=== PATIENT | female | born 1975 | race Two or more races ===

== ENCOUNTER 2020-03-27 08:25 | Outpatient (REF) | payer BC, SELFPAY ==
--- NOTE | 2020-03-27 08:29 | MM_ITS ---
EXAMINATION: MM SCREENING DIGITAL BREAST TOMOSYNTHESIS, BILATERAL CLINICAL INFORMATION: Screening. Asymptomatic. The lifetime risk of breast cancer based on the Tyrer-Cuzick Model is 8%. COMPARISON: Mammography: 06/22/2018, 06/16/2017 (baseline). TECHNIQUE: Digital breast tomosynthesis is performed in both the craniocaudal and mediolateral oblique views along with computer-aided detection (CAD). Synthesized 2D images are generated from the tomosynthesis. FINDINGS: There are scattered areas of fibroglandular density (ACR BI-RADS breast composition Category b). There are no significant masses, abnormal calcifications, or other abnormalities. Parenchymal pattern is similar to prior exams. No significant changes. MM/MM tomosynthesis screening BI IMPRESSION: No mammographic evidence of malignancy. ASSESSMENT: BI-RADS 1: Negative RECOMMENDATION: Routine annual mammography screening. This patient's information was entered into a reminder system with a target due date for their next mammogram.
== END 2020-03-27 08:26 | disposition home or self-care (01) ==
LOC: HO.MAMMO 08:25
PROVIDERS: PCP Internal Medicine; Visit Provider Internal Medicine
DX: Z12.31 Encounter for screening mammogram for malignant neoplasm of breast (principal)
CPT/HCPCS: 77063; 77067

== ENCOUNTER 2021-05-28 08:10 | Outpatient (REF) | payer BC, SELFPAY ==
--- NOTE | ~2021-05-28 | MM_ITS ---
EXAMINATION: MM SCREENING DIGITAL BREAST TOMOSYNTHESIS, BILATERAL CLINICAL INFORMATION: Screening. Asymptomatic. The lifetime risk of breast cancer based on the Tyrer-Cuzick Model is 8.2%. COMPARISON: Mammography: March 27, 2020 and studies dating back to June 16, 2017 TECHNIQUE: Digital breast tomosynthesis is performed in both the craniocaudal and mediolateral oblique views along with computer-aided detection (CAD). Synthesized 2D images are generated from the tomosynthesis. FINDINGS: There are scattered areas of fibroglandular density (ACR BI-RADS breast composition Category b). There are no significant masses, abnormal calcifications, or other abnormalities. MM/MM tomosynthesis screening BI IMPRESSION: There are no significant changes from prior study. ASSESSMENT: BI-RADS 1: Negative RECOMMENDATION: Routine annual mammography screening. This patient's information was entered into a reminder system with a target due date for their next mammogram.
== END 2021-05-28 08:11 | disposition home or self-care (01) ==
LOC: HO.MAMMO 08:10
PROVIDERS: PCP Internal Medicine; Visit Provider Internal Medicine
DX: Z12.31 Encounter for screening mammogram for malignant neoplasm of breast (principal)
CPT/HCPCS: 77063; 77067

== ENCOUNTER 2021-07-01 10:36 | Emergency (ER) | payer BC, SELFPAY ==
--- NOTE | ~2021-07-01 | XR_ITS ---
EXAMINATION: XR ANKLE AND FOOT, LEFT CLINICAL INFORMATION: Left foot and ankle pain status post crush injury. COMPARISON: None TECHNIQUE: AP, lateral, and mortise views of the left ankle. FINDINGS: There is no acute fracture or dislocation. The tarsal bones are normally aligned. There is a small plantar calcaneal spur. The metatarsals and phalanges are intact. There is mild soft tissue swelling. No radiopaque foreign body. XR/XR ankle LT 2V IMPRESSION: 1. Mild soft tissue swelling without acute underlying osseous abnormality. 2. Small degenerative plantar calcaneal spur.
--- NOTE | ~2021-07-01 | XR_ITS ---
EXAMINATION: XR ANKLE AND FOOT, LEFT CLINICAL INFORMATION: Left foot and ankle pain status post crush injury. COMPARISON: None TECHNIQUE: AP, lateral, and mortise views of the left ankle. FINDINGS: There is no acute fracture or dislocation. The tarsal bones are normally aligned. There is a small plantar calcaneal spur. The metatarsals and phalanges are intact. There is mild soft tissue swelling. No radiopaque foreign body. XR/XR foot LT min 3V IMPRESSION: 1. Mild soft tissue swelling without acute underlying osseous abnormality. 2. Small degenerative plantar calcaneal spur.
[2021-07-01 11:08] VITALS: BP 147/88; PULSE 69; RESP 18; TEMP 36.7; O2SAT 97; BMI 30.7
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
== END 2021-07-01 12:50 | disposition home or self-care (01) ==
PROVIDERS: Emergency Provider Emergency Medicine Emergency Medical Services; PCP Internal Medicine
DX: M25.572 Pain in left ankle and joints of left foot (principal); Z79.899 Other long term (current) drug therapy
CPT/HCPCS: 73600; 73630; 99283

== ENCOUNTER → 2021-07-14 12:54 | Outpatient (BNVA) | payer BC, SELFPAY | PROVIDERS: PCP Internal Medicine; Visit Provider Physician Assistant | DX: Z13.89 Encounter for screening for other disorder (principal) ==

== ENCOUNTER 2022-07-08 09:54 | Outpatient (REF) | payer BC, SELFPAY ==
--- NOTE | ~2022-07-08 | MM_ITS ---
EXAMINATION: MM SCREENING DIGITAL BREAST TOMOSYNTHESIS, BILATERAL CLINICAL INFORMATION: Screening. Asymptomatic. The lifetime risk of breast cancer based on the Tyrer-Cuzick Model is 9%. COMPARISON: Mammography: 05/28/2021, 03/27/2020, 06/22/2018 TECHNIQUE: Digital breast tomosynthesis is performed in both the craniocaudal and mediolateral oblique views along with computer-aided detection (CAD). Synthesized 2D images are generated from the tomosynthesis. FINDINGS: There are scattered areas of fibroglandular density (ACR BI-RADS breast composition Category b). There are no significant masses, abnormal calcifications, or other abnormalities. Parenchymal pattern is similar to prior studies. There is no developing density or architectural abnormality. The axilla and skin contours are unremarkable. No significant changes. MM/MM tomosynthesis screening BI IMPRESSION: No mammographic evidence of malignancy. ASSESSMENT: BI-RADS 1: Negative RECOMMENDATION: Routine annual mammography screening. This patient's information was entered into a reminder system with a target due date for their next mammogram.
== END 2022-07-08 09:55 | disposition home or self-care (01) ==
LOC: HO.MAMMO 09:54
PROVIDERS: PCP Internal Medicine; Visit Provider Internal Medicine
DX: Z12.31 Encounter for screening mammogram for malignant neoplasm of breast (principal)
CPT/HCPCS: 77063; 77067

== ENCOUNTER 2022-09-04 15:07 | Outpatient (REF) | payer BC, SELFPAY ==
[2022-09-04 15:37] LABS: Basophils Percent Auto 0.4 % (0-2); Eosinophils Absolute Auto 0.3 X10*3/uL (0.0-0.4); Eosinophils Percent Auto 3.1 % (0-4); Hematocrit 34.8 % (37.0-47.0); Hemoglobin 10.4 g/dl (12.0-16.0); Imm Gran Abs Auto 0.02 X10*3/uL (0.00-0.03); Imm Gran Pct Auto 0.2 % (0.0-0.4); Lymphocytes Absolute Auto 3.1 X10*3/uL (1.2-4.9); Lymphocytes Percent Auto 34.4 % (20-40); MANUAL DIFF FLAG NO; Mean Corpuscular HGB Conc 29.9 g/dl (31.0-35.0); Mean Platelet Volume 9.5 fL (9.4-12.3); Monocytes Absolute Auto 0.5 X10*3/uL (0.1-1.2); Monocytes Percent Auto 5.9 % (2-11); Neutrophils Absolute Auto 5.1 x10*3/uL (2.0-8.3); Platelet Count 298 X10*3/uL (160-400); Red Blood Count 4.52 X10*6/uL (4.20-5.50); Red Cell Distribution Width 17.4 % (11.0-16.0); White Blood Count 9.1 X10*3/uL (4.8-10.8)
[2022-09-04 21:21] LABS: Alanine Aminotransferase 18 U/L (0-31); Albumin Level 3.8 g/dL (3.5-5.0); Alkaline Phosphatase 75 U/L (39-117); Anion Gap 14 (12-20); Aspartate Amino Transferase 16 U/L (5-31); Bilirubin Total 0.3 mg/dL (0.0-1.0); Blood Urea Nitrogen 21 mg/dL (9-16); Calcium 9.2 mg/dL (8.4-10.2); Carbon Dioxide 22 mmol/L (22-29); Chloride 105 mmol/L (96-108); Estimated Glomerular Filt Rate > 60; Glucose Random 86 mg/dL (60-115); Potassium 3.7 mmol/L (3.3-5.1); Sodium 137 mmol/L (135-145); Total Protein 7.7 g/dL (6.5-8.0)
[2022-09-06 23:29] LABS: TS Negative Control Passed; TS Panel A 0; TS Panel B 0; TS Positive Control Passed; TSpotTB Negative (Negative)
== END 2022-09-04 15:08 | disposition home or self-care (01) ==
LOC: HO.LAB 15:07
PROVIDERS: PCP Internal Medicine; Visit Provider Dermatology
DX: Z11.1 Encounter for screening for respiratory tuberculosis (principal); L40.0 Psoriasis vulgaris; Z79.899 Other long term (current) drug therapy
CPT/HCPCS: 36415; 80053; 85025; 86481

== ENCOUNTER 2022-11-09 15:10 | Outpatient (AMB) | payer BC, SELFPAY ==
[2022-11-09 15:48] VITALS: BP 132/90; PULSE 70; O2SAT 100; BMI 34.2
--- NOTE | 2022-11-09 15:48 | MHC.PC.OV ---
Vital Signs 11/09/22 15:48 Height 5 ft 1 in Weight 181 lb BMI 34.2 BP 132/90 H Blood Pressure Location Rt brachial Position Sitting Pulse 70 Pulse Source Pulse Oximeter Pulse Oximetry (%) 100 Oxygen Delivery Method Room Air Intake Visit Reasons: Physical exam Intake Note: Pt is here today for her PE and Pap Smear Is last menstrual period known: Yes Last menstrual period: 10/24/22 Allergies No Known Allergies Allergy (Verified 11/09/22 17:43) Medication List - Last Reconciled 11/09/22 by Tamiko Laurent MD adalimumab (Humira(CF) Pen) 40 mg subcut Q2W Tobacco use date assessed: 11/09/22 Dental Screening Dental Screen Date: 11/09/22 Did you have a dental visit in the last 12 months?: Yes Did you have a dental problem in the last 6 months where you did not have access to dental care?: No Was dental information given to patient?: Patient has dentist [facility] Medical History Anemia Cervical cancer screening Hyperlipidemia Obesity (BMI 30.0-34.9) Psoriasis Surgical History H/O tubal ligation Previous section Family History Father Insulin dependent type 1 diabetes mellitus Mother CAD (coronary artery disease) H/O heart artery stent Hypercholesteremia Sister Thyroid disorder Essential hypertension Social History Housing: House Patient Tobacco Use Status: Never used Tobacco e-Cigarette/Vaping Use: Never Used service: No Current occupational status: employed 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[employer] Cognitive needs: No Hearing needs: No Vision needs: No Female Reproductive History Menstrual Date of last menstrual period: 10/24/22 Total pregnancies: 4 Questionnaire PHQ-9 Over the last 2 weeks, how often have you been bothered by any of the following problems? 1. Little interest or pleasure in doing things: not at all 2. Feeling down, depressed, or hopeless: not at all 3. Trouble falling or staying asleep, or sleeping too much: several days 4. Feeling tired or having little energy: several days 5. Poor appetite or overeating: nearly every day 6. Feeling bad about yourself - or that you are a failure or have let yourself or your family down: not at all 7. Trouble concentrating on things, such as reading the newspaper or watching television: not at all 8. Moving or speaking so slowly that other people could have noticed. Or the opposite - being so fidgety or restless that you have been moving around a lot more than usual: not at all 9. Thoughts that you would be better off or of hurting yourself in some way: not at all Total score: 5 Depression Screening Interpretation: Negative 90825 - PHQ-9 Billing: Yes Source: Developed by Drs. Antonio Salazar, Radha Davison, Baltazar Borges and colleagues, with an educational roberta from [employer]. Thrive Questionnaire Date Thrive assessed: 11/09/22 I am a: Patient What is your living situation today?: I have a steady place to live Within the past 12 months, did the food you bought not last and you didn't have the money to get more?: Never true Within the past 12 months, did you worry whether your food would run out before you got money to buy more?: Never true Do you have trouble paying for medicines?: No Do you have trouble getting transportation to medical appointments?: No Do you have trouble paying your heating and electricity bill?: No Do you have trouble taking care of your child, family member or friend?: No Do you have trouble with day-to-day activities such as bathing, preparing meals, shopping, managing finances, etc.?: No Are you currently unemployed and looking for a job?: No Are you interested in more education?: No AUDIT C Alcohol Use Questionnaire (AUDIT-C) 1. How often do you have a drink containing alcohol?: Monthly or less 2. How many drinks containing alcohol do you have on a typical day when you are drinking?: 1 or 2 3. How often do you have six or more drinks on one occasion?: Never Total Score: 1 LAWANDA-7 AMB Questionnaire LAWANDA-7 Date LAWANDA - 7 assessed: 11/09/22 Feeling nervous, anxious, or on edge: 0 = Not at all Not being able to stop or control worryin = Several days Worrying too much about different things: 0 = Not at all Trouble relaxin = Several days Being so restless that it is hard to sit still: 0 = Not at all Becoming easily annoyed or irritable: 0 = Not at all Feeling afraid as if something awful might happen: 0 = Not at all Total LAWANDA-7 score (0-4 normal; 5-9 mild; 10-14 moderate; 15-21 severe): 2 Source: Developed by Drs. Antonio Salazar, Radha Davison, Baltazar Borges and colleagues, with an educational roberta from [employer]. LAWANDA-7 Assessment Billing LAWANDA-7 Assessment Tool: LAWANDA-7 Assessment 76402 Review of Systems Const Denies body aches, Denies fatigue, Denies fever(s), Denies headache(s), Denies weakness and Reports weight gain Eyes Denies change in vision, Denies eye discharge and Denies itchy eyes ENT Denies dizziness, Denies headache(s), Denies nasal congestion, Denies nasal discharge and Denies sore throat Card Denies chest pain, Denies lightheadedness, Denies palpitations and Denies dyspnea Resp Denies chest congestion, Denies cough, Denies dyspnea and Denies wheezing GI Denies abdominal pain, Denies change in bowel habits and Denies heartburn Denies hematuria, Denies urinary frequency, Denies dysuria and Denies urinary urgency Musc Reports no additional complaints Skin/Breast Denies breast pain, Denies breast mass, Denies lesions and Denies rash Neuro Denies dizziness, Denies headache(s) and Denies weakness Psych Reports no additional complaints Endo Denies fatigue, Denies polydipsia, Denies polyuria and Denies palpitations José Miguel/Lymph Denies easy bruising Aller/Immun Denies itchy eyes, Denies seasonal rhinorrhea and Denies wheezing Physical exam (Primary Care) Vital Signs: Last Vital Signs Pulse 70 11/09/22 15:48 BP 132/90 H 11/09/22 15:48 Pulse Ox 100 11/09/22 15:48 Oxygen Delivery Method Room Air 11/09/22 15:48 BMI result Body Mass Index 34.2 BMI Assessment/Plan discussion: High BMI High, discussed plan: lifestyle, weight reduction, dietary and physical activity Tobacco/Smoking Status: Tobacco use Status Tobacco use date assessed 11/09/22 11/09/22 15:54 Patient Tobacco Use Status Never used Tobacco 11/09/22 15:54 e-Cigarette/Vaping Use Never Used 11/09/22 15:54 PHQ-9: PHQ-9 Score PHQ-9: Total score 5 11/09/22 16:46 Depression Screening Interpretation: Negative Thrive Assessment: Date of Thrive Assessment Date Thrive assessed 11/09/22 11/09/22 16:01 Const General: comfortable, no acute distress, alert, awake and Physically active Nutritional Appearance: obese Orientation/consciousness: patient oriented x3 Limitations: no limitations HENMT Head: Yes normocephalic Ears: hearing grossly normal bilaterally, external ears normal, TM's normal bilaterally and EAC's normal General nose exam: Normal external nose present Face and sinus: Yes face symmetric Mouth: Normal oral and palatal mucosa present, tongue normal, oropharynx normal and moist mucous membranes Eyes General: appearance normal, both eyes and all related structures Periorbital: periorbital findings normal Eyelids: Yes eyelids normal Conjunctivae: conjunctivae normal Sclerae: sclerae normal Pupils: Equal, round and reactive pupils present EOM: EOMs intact bilaterally Neck Neck: Yes full ROM, Yes no lymphadenopathy and Yes supple Thyroid: Thyroid normal (Nonpalpable) Chest Chest palpation & inspection: normal palpation of entire chest wall and abnormal inspection of the chest Breast/axilla inspection: normal inspection of the breasts Breast/axilla palpation: normal palpation of the breasts and normal palpation of the axillae Resp Effort & Inspection: normal respiratory effort and able to speak in complete sentences Auscultation: clear to auscultation bilaterally Cardio Rate: regular rate Rhythm: regular rhythm Heart sounds: S1 normal heart sound present and S2 normal heart sound present GI Inspection: Yes obesity Palpation (GI): Soft to palpation, nontender, no guarding and no masses Auscultation: normal bowel sounds General: Yes bladder normal to palpation and Yes no CVA tenderness External Female Exam: normal external appearance and normal appearance of the urethra Speculum Exam - Vagina: normal appearance of the vagina, normal palpation and normal vaginal discharge Speculum Exam - Cervix: normal appearance of the cervix, normal palpation and Cervical os open Bimanual exam- vagina & uterus: normal palpation, bladder normal to palpation, consistency normal, normal palpation, non-tender and no cervical motion tenderness Bimanual Exam- Adnexa, other: normal adnexae, no masses, normal and No adnexal tenderness OB/external & speculum: Cervical os open Back/Spine/Pelvis Back: no CVA tenderness and No back tenderness Skin General skin exam: no rashes or lesions noted Neuro General: patient oriented x3, gait normal, tone normal, moves all extremities, Normal light touch and pain sensation, no focal motor deficits and CN's II-XI intact bilaterally Cranial nerves: Yes Equal, round and reactive pupils present Gait exam (Neuro): Normal gait present Psych Appearance: grossly normal and well kempt Mental Status: mental status grossly normal Speech and movement: Normal speech and movement present Affect: normal affect Attitude: cooperative Thought process: Normal thought process present Thought content: Normal thought content present Assessment and Plan Assessment & Plan (1) Annual visit for general adult medical examination with abnormal findings: Code(s): Z00.01 - Encounter for general adult medical examination with abnormal findings Plan: Will check appropriate labs. Recommended dental visit every 6 months and regular eye exams, at least every 2 years. Take adequate calcium in diet and vitamin-D 3 at 2000 IU per cap once a day, in addition to weight-bearing exercises to help maintain good muscle tone and weight control. Instructed to do self-breast exam, and continue to get yearly mammogram. Advised to get yearly flu shots, get the new COVID booster that is coming out, and up-to-date with her Tdap . She is now due for colon cancer screening, does not want to get a colonoscopy procedure, check with insurance if Cologuard covered and will let me know so that test can be ordered. Cervical cancer screening done today (2) Obesity (BMI 30.0-34.9): Code(s): E66.9 - Obesity, unspecified Plan: Discussed need to increase activity and wt reduction. Recommended focusing on improving your health instead of dieting. : Eat Mediterranean diet, limit foods high in fat, sugar, and calories, eat slowly, pay attention to portion sizes, plan your meals ahead of time, start regular physical activity 150 minutes of moderate intensity exercise or 90 minutes/week of vigorous exercise and increase water intake. (3) Anemia: Code(s): D64.9 - Anemia, unspecified Plan: Ordered CBC and iron profile, encouraged to incorporate lot of green leafy vegetables and lean meat into her diet (4) Cervical cancer screening: Code(s): Z12.4 - Encounter for screening for malignant neoplasm of cervix Plan: Pap and pelvic exam done today (5) Psoriasis: Comment: Sees Dr. uLis Maharaj- currently on Humira Code(s): L40.9 - Psoriasis, unspecified Plan: Currently a Humira followed by dermatology (6) Encounter for physical examination: Code(s): Z00.00 - Encounter for general adult medical examination without abnormal findings Orders: Orders Comprehensive [place]. Panel Fast Today E66.9 - Obesity, unspecified, S90.32XA - Contusion of left foot, initial encounter, Z13.1 - Encounter for screening for diabetes mellitus, Z13.220 - Encounter for screening for lipoid disorders IRON PROFILE Today D64.9 - Anemia, unspecified, E66.9 - Obesity, unspecified, S90.32XA - Contusion of left foot, initial encounter, Z13.1 - Encounter for screening for diabetes mellitus, Z13.220 - Encounter for screening for lipoid disorders Lipid Panel Today E66.9 - Obesity, unspecified, S90.32XA - Contusion of left foot, initial encounter, Z13.1 - Encounter for screening for diabetes mellitus, Z13.220 - Encounter for screening for lipoid disorders TSH reflex Free T4 Today E66.9 - Obesity, unspecified, S90.32XA - Contusion of left foot, initial encounter, Z13.1 - Encounter for screening for diabetes mellitus, Z13.220 - Encounter for screening for lipoid disorders Vitamin D 25-OH Total Today E66.9 - Obesity, unspecified, S90.32XA - Contusion of left foot, initial encounter, Z13.1 - Encounter for screening for diabetes mellitus, Z13.220 - Encounter for screening for lipoid disorders Complete Blood Count Auto Diff Today E66.9 - Obesity, unspecified, Z13.1 - Encounter for screening for diabetes mellitus, Z13.220 - Encounter for screening for lipoid disorders Pap Smear Today Z12.4 - Encounter for screening for malignant neoplasm of cervix Coding Level of Care Code Est Pt Prev Care 40-64y(46872) Diagnoses Annual visit for general adult medical examination with abnormal findings Z00.01 Obesity (BMI 30.0-34.9) E66.9 Anemia D64.9 Cervical cancer screening Z12.4 Psoriasis L40.9 Encounter for physical examination Z00.00 Additional Codes LAWANDA-7 Assessment Billing - LAWANDA-7 Assessment Tool: LAWANDA-7 Assessment [id number] ([id number])
== END 2022-11-09 16:43 | disposition home or self-care (01) ==
PROVIDERS: PCP Internal Medicine; Visit Provider Internal Medicine
DX: Z00.01 Encounter for general adult medical examination with abnormal findings (principal); E66.9 Obesity, unspecified; D64.9 Anemia, unspecified; Z68.34 Body mass index [BMI] 34.0-34.9, adult; L40.9 Psoriasis, unspecified
CPT/HCPCS: 99396

== ENCOUNTER 2022-11-09 16:47 | Outpatient (REF) | payer BC, SELFPAY ==
[2022-11-18 12:49] LABS: HPV mRNA E6/E7 rflx Not Detected (Not Detected)
== END 2022-11-09 16:48 | disposition home or self-care (01) ==
LOC: HO.LAB 16:47
PROVIDERS: Visit Provider Internal Medicine
DX: Z12.4 Encounter for screening for malignant neoplasm of cervix (principal); Z11.51 Encounter for screening for human papillomavirus (HPV)
CPT/HCPCS: 87624; 88142

== ENCOUNTER 2023-01-30 11:36 | Outpatient (AMB) | payer BC, SELFPAY ==
--- NOTE | 2023-01-30 11:34 | A.OFFPC_ITS ---
<Statement entered by Tamiko Laurent MD - 04/12/25 23:45> This note has been administratively?closed. Intake Visit Reasons: weight loss options Intake Note: [phone] Allergies No Known Allergies Allergy (Verified 03/10/25 15:36) Medication List - Last Reconciled 01/30/23 by Tamiko Laurent MD adalimumab (Humira(CF) Pen) 40 mg subcut Q2W cholecalciferol (vitamin D3) 1,250 mcg PO QWEEK 3 months ferrous fumarate 325 mg PO DAILY Tobacco use date assessed: 01/30/23 Dental Screening Dental Screen Date: 01/30/23 Did you have a dental visit in the last 12 months?: Yes Did you have a dental problem in the last 6 months where you did not have access to dental care?: No Was dental information given to patient?: Patient has dentist [facility] Medical History (Updated 03/10/25 @ 15:48 by Radha Laughlin PA-C) Strep pharyngitis Anemia Irregular menstrual bleeding Adalimumab (Humira) long-term use Impaired fasting glucose Acute respiratory disease Cough Wheezing on auscultation Essential hypertension Vitamin D deficiency Hypochromic microcytic anemia Mixed dyslipidemia Hyperlipidemia Psoriasis Cervical cancer screening Obesity (BMI 30.0-34.9) Surgical History H/O tubal ligation Previous section Family History Father Insulin dependent type 1 diabetes mellitus Mother CAD (coronary artery disease) H/O heart artery stent Hypercholesteremia Sister Thyroid disorder Essential hypertension Social History Housing: House Alcohol intake: current Alcohol intake frequency: holidays/special occasions only Alcohol type: wine and hard liquor Patient Tobacco Use Status: Never used Tobacco e-Cigarette/Vaping Use: Never Used service: No Current occupational status: employed 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 Saman, Baltazar Borges and colleagues, with an educational roberta from [employer]. Physical exam (Primary Care) Tobacco/Smoking Status: Tobacco use Status Tobacco use date assessed 01/30/23 01/30/23 11:36 Patient Tobacco Use Status Never used Tobacco 01/30/23 11:36 e-Cigarette/Vaping Use Never Used 01/30/23 11:36 Thrive Assessment: Date of Thrive Assessment Date Thrive assessed 11/09/22 01/30/23 11:36 Telehealth Telehealth Location of provider rendering services: practice address Location of patient: address on file Patient Identification confirmed using: Name, : Yes Telehealth method: video Patient verbally consented to treatment: Yes Patient verbally consented to billing insurance company: Yes Patient informed of any privacy concerns related to visit: Yes Minutes spent on Phone/Video with Pt.: 15 Coding Level of Care Code Admin Sign Off/No Billing Diagnoses Obesity (BMI 30.0-34.9) E66.9
== END 2023-01-30 15:30 | disposition home or self-care (01) ==
LOC: HO.HMGC 11:36
PROVIDERS: PCP Internal Medicine; Visit Provider Internal Medicine
DX: E66.9 Obesity, unspecified (principal)
CPT/HCPCS: 99499

== ENCOUNTER 2023-05-03 09:09 | Outpatient (REF) | payer BC, SELFPAY ==
[2023-05-03 09:29] LABS: MANUAL DIFF FLAG NO
[2023-05-03 10:13] LABS: Basophils Percent Auto 0.4 % (0-2); Eosinophils Absolute Auto 0.3 X10*3/uL (0.0-0.4); Eosinophils Percent Auto 3.6 % (0-4); Hematocrit 42.2 % (37.0-47.0); Hemoglobin 13.4 g/dl (12.0-16.0); Imm Gran Abs Auto 0.02 X10*3/uL (0.00-0.03); Imm Gran Pct Auto 0.3 % (0.0-0.4); Lymphocytes Absolute Auto 2.8 X10*3/uL (1.2-4.9); Lymphocytes Percent Auto 39.9 % (20-40); Mean Corpuscular HGB Conc 31.8 g/dl (31.0-35.0); Mean Corpuscular Hemoglobin 27.7 pg (27.0-33.0); Mean Corpuscular Volume 87.2 fL (80.0-98.0); Mean Platelet Volume 9.7 fL (9.4-12.3); Monocytes Absolute Auto 0.5 X10*3/uL (0.1-1.2); Monocytes Percent Auto 7.5 % (2-11); Neutrophils Absolute Auto 3.3 x10*3/uL (2.0-8.3); Neutrophils Percent Auto 48.3 % (45-73); Platelet Count 253 X10*3/uL (160-400); Red Blood Count 4.84 X10*6/uL (4.20-5.50); Red Cell Distribution Width 14.5 % (11.0-16.0); White Blood Count 6.9 X10*3/uL (4.8-10.8)
[2023-05-03 11:16] LABS: Alanine Aminotransferase 16 U/L (0-31); Albumin Level 3.7 g/dL (3.5-5.0); Alkaline Phosphatase 71 U/L (39-117); Anion Gap 11 (12-20); Aspartate Amino Transferase 14 U/L (5-31); Bilirubin Total 0.5 mg/dL (0.0-1.0); Blood Urea Nitrogen 15 mg/dL (9-16); Calcium 9.1 mg/dL (8.4-10.2); Carbon Dioxide 25 mmol/L (22-29); Chloride 107 mmol/L (96-108); Cholesterol 295 mg/dL (<200); Estimated Glomerular Filt Rate > 60; Glucose Fasting 91 mg/dL (60-99); HDL Cholesterol 63 mg/dL (>40); Iron 108 mcg/dL (30-160); LDL Cholesterol Calculated 208 mg/dL (<100); Percent Iron Saturation 30 % (15-50); Potassium 3.8 mmol/L (3.3-5.1); Sodium 139 mmol/L (135-145); Total Iron Binding Capacity 356 mcg/dL (228-428); Total Protein 7.5 g/dL (6.5-8.0); Triglycerides 124 mg/dL (<150); Unsaturated Iron Binding 248 ug/dL
[2023-05-03 11:34] LABS: TSH reflex Free T4 1.89 uIU/mL (0.32-4.0); Vitamin D 25-OH Total 42.6 ng/mL (>30)
== END 2023-05-03 09:10 | disposition home or self-care (01) ==
LOC: HO.LAB 09:09
PROVIDERS: PCP Internal Medicine; Visit Provider Internal Medicine
DX: E78.2 Mixed hyperlipidemia (principal); D50.9 Iron deficiency anemia, unspecified; E55.9 Vitamin D deficiency, unspecified; E66.9 Obesity, unspecified; S90.32XA Contusion of left foot, initial encounter; X58.XXXA Exposure to other specified factors, initial encounter; Y93.9 Activity, unspecified; Y92.9 Unspecified place or not applicable; Y99.9 Unspecified external cause status; Z13.220 Encounter for screening for lipoid disorders; Z13.1 Encounter for screening for diabetes mellitus
CPT/HCPCS: 36415; 80053; 80061; 82306; 83540; 84443; 85025

== ENCOUNTER 2023-05-11 12:53 | Outpatient (AMB) | payer BC, SELFPAY ==
--- NOTE | 2023-05-11 13:12 | MHC.PC.OV ---
Vital Signs 05/11/23 13:13 Height 5 ft 1 in Weight 185 lb 6 oz BMI 35.0 BP 142/90 H Blood Pressure Location Lt brachial Position Sitting Pulse 83 Pulse Source Pulse Oximeter Pulse Oximetry (%) 99 Oxygen Delivery Method Room Air Intake Visit Reasons: 6 month follow up Intake Note: Pt is here to follow up for labs Allergies No Known Allergies Allergy (Verified 05/11/23 13:40) Medication List - Last Reconciled 05/11/23 by Tamiko Laurent MD adalimumab (Humira(CF) Pen) 40 mg subcut Q2W ferrous fumarate 325 mg PO DAILY Tobacco use date assessed: 05/11/23 Dental Screening Dental Screen Date: 05/11/23 Did you have a dental visit in the last 12 months?: Yes Did you have a dental problem in the last 6 months where you did not have access to dental care?: No Was dental information given to patient?: Patient has dentist HPI 6 month follow up HPI Details 47-year-old lady with obesity, anemia, and psoriasis, here today for her follow-up . She is frustrated that his keeps on getting weight, but admits that it is her fault as she has not been controlling her diet and has not been getting any exercise at all. Her recent fasting labs showed resolution of her anemia, normal electrolytes, fasting glucose, thyroid levels and vitamin-D but her LDL cholesterol is markedly elevated at 208 mg/dL. [facility] Medical History (Updated 05/11/23 @ 13:50 by Tamiko Laurent MD) Essential hypertension Vitamin D deficiency Hypochromic microcytic anemia Mixed dyslipidemia Hyperlipidemia Psoriasis Cervical cancer screening Anemia Obesity (BMI 30.0-34.9) Surgical History H/O tubal ligation Previous section Family History Father Insulin dependent type 1 diabetes mellitus Mother CAD (coronary artery disease) H/O heart artery stent Hypercholesteremia Sister Thyroid disorder Essential hypertension Social History Housing: House Patient Tobacco Use Status: Never used Tobacco e-Cigarette/Vaping Use: Never Used service: No Current occupational status: employed 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 Depression Screening Interpretation: Negative Depression Screening Done: Yes 00384 - PHQ-9 Billing: Patient declined-do not bill Source: Developed by Drs. Antonio Salazar, Radha Davison, Baltazar Borges and colleagues, with an educational roberta from [employer]. Thrive Questionnaire Date Thrive assessed: 05/11/23 I am a: Patient What is your living situation today?: I choose not to answer this question Within the past 12 months, did the food you bought not last and you didn't have the money to get more?: I choose not to answer this question Within the past 12 months, did you worry whether your food would run out before you got money to buy more?: I choose not to answer this question Do you have trouble paying for medicines?: I choose not to answer this question Do you have trouble getting transportation to medical appointments?: I choose not to answer this question Do you have trouble paying your heating and electricity bill?: I choose not to answer this question Do you have trouble taking care of your child, family member or friend?: I choose not to answer this question Do you have trouble with day-to-day activities such as bathing, preparing meals, shopping, managing finances, etc.?: I choose not to answer this question Are you currently unemployed and looking for a job?: I choose not to answer this question Are you interested in more education?: I choose not to answer this question Currently or been in a relationship where the following occur: I choose not to answer this question THRIVE Score: 0 AUDIT C Alcohol Use Questionnaire (AUDIT-C) 1. How often do you have a drink containing alcohol?: Monthly or less 2. How many drinks containing alcohol do you have on a typical day when you are drinking?: 1 or 2 3. How often do you have six or more drinks on one occasion?: Never Total Score: 1 LAWANDA-7 AMB Questionnaire LAWANDA-7 Date LAWANDA - 7 assessed: 05/11/23 Source: Developed by Drs. Antonio Salazar, Radha Davison, Baltazar Borges and colleagues, with an educational roberta from [employer]. LAWANDA-7 Assessment Billing LAWANDA-7 Assessment Tool: pt declined-do not bill Review of Systems Const Denies body aches, Denies fatigue, Denies fever(s), Denies headache(s), Denies weakness and Reports weight gain Eyes Denies change in vision, Denies eye discharge and Denies itchy eyes ENT Denies dizziness, Denies headache(s), Denies nasal congestion, Denies nasal discharge and Denies sore throat Card Denies chest pain, Denies lightheadedness, Denies palpitations and Denies dyspnea Resp Denies chest congestion, Denies cough, Denies dyspnea and Denies wheezing GI Denies abdominal pain, Denies change in bowel habits and Denies heartburn Denies hematuria, Denies urinary frequency, Denies dysuria and Denies urinary urgency Musc Reports no additional complaints Skin/Breast Denies breast pain, Denies breast mass, Denies lesions and Denies rash Neuro Denies dizziness, Denies headache(s) and Denies weakness Psych Reports no additional complaints Endo Denies fatigue, Denies polydipsia, Denies polyuria and Denies palpitations José Miguel/Lymph Denies easy bruising Aller/Immun Denies itchy eyes, Denies seasonal rhinorrhea and Denies wheezing Physical exam (Primary Care) Vital Signs: Last Vital Signs Pulse 83 05/11/23 13:13 BP 142/90 H 05/11/23 13:13 Pulse Ox 99 05/11/23 13:13 Oxygen Delivery Method Room Air 05/11/23 13:13 BMI result Body Mass Index 35.0 BMI Assessment/Plan discussion: High BMI High, discussed plan: lifestyle, weight reduction, dietary and physical activity Tobacco/Smoking Status: Tobacco use Status Tobacco use date assessed 05/11/23 05/11/23 13:19 Patient Tobacco Use Status Never used Tobacco 05/11/23 13:19 e-Cigarette/Vaping Use Never Used 05/11/23 13:19 Depression Screening Interpretation: Negative Thrive Assessment: Date of Thrive Assessment Date Thrive assessed 05/11/23 05/11/23 13:20 Currently or been in a relationship where the following occur: I choose not to answer this question Const General: comfortable, no acute distress and alert Nutritional Appearance: obese Orientation/consciousness: patient oriented x3 HENMT Head: Yes normocephalic Ears: external ears normal General nose exam: Normal external nose present Face and sinus: Yes face symmetric Mouth: oropharynx normal and moist mucous membranes Eyes General: appearance normal, both eyes and all related structures Neck Neck: Yes full ROM, Yes no lymphadenopathy and Yes supple Thyroid: Thyroid normal (Nonpalpable) Resp Effort & Inspection: normal respiratory effort and able to speak in complete sentences Auscultation: clear to auscultation bilaterally Cardio Rate: regular rate Rhythm: regular rhythm Heart sounds: S1 normal heart sound present and S2 normal heart sound present GI Inspection: Yes obesity Palpation (GI): Soft to palpation, nontender, no guarding and no masses Auscultation: normal bowel sounds Back/Spine/Pelvis Back: No back tenderness Skin General skin exam: no rashes or lesions noted Neuro General: patient oriented x3, gait normal, tone normal, moves all extremities, Normal light touch and pain sensation, no focal motor deficits and CN's II-XI intact bilaterally Gait exam (Neuro): Normal gait present Results Reviewed Results Reviewed: ENTERED: 05/03/23 ISAÍAS HUYNH: ORDERED: CBC Auto Diff Test Result Flag Reference WBC 6.9 4.8-10.8 X10*3/uL RBC 4.84 4.20-5.50 X10*6/uL HGB 13.4 # 12.0-16.0 g/dl HCT 42.2 # 37.0-47.0 % MCV 87.2 80.0-98.0 fL MCH 27.7 27.0-33.0 pg MCHC 31.8 31.0-35.0 g/dl RDW 14.5 11.0-16.0 % PLT 253 160-400 X10*3/uL MPV 9.7 9.4-12.3 fL Neut Pct Auto 48.3 45-73 % ImGran Pct Auto 0.3 0.0-0.4 % Lymp Pct Auto 39.9 20-40 % Beckham Pct Auto 7.5 2-11 % Eos Pct Auto 3.6 0-4 % Baso Pct Auto 0.4 0-2 % NRBC Pct Auto 0.0 0.0-0.2 /100WBC ANC Neut Abs # 3.3 2.0-8.3 x10*3/uL ImGran Abs Auto 0.02 0.00-0.03 X10*3/uL Lymph Abs Auto 2.8 1.2-4.9 X10*3/uL Beckham Abs Auto 0.5 0.1-1.2 X10*3/uL Eos Abs Auto 0.3 0.0-0.4 X10*3/uL Baso Abs Auto 0.0 0.0-0.2 X10*3/uL NRBC Abs Auto 0.000 0.0-0.012 X10*3/uL ENTERED: 05/03/23 ISAÍAS HUYNH: ORDERED: CMP Fast, IRON PROF, Lipid Panel, Vitamin D 25-OH, TSH Rflx Test Result Flag Reference Sodium 139 135-145 mmol/L Potassium 3.8 3.3-5.1 mmol/L CL 107 96-108 mmol/L CO2 25 22-29 mmol/L Gap 11 L 12-20 BUN 15 9-16 mg/dL Creat 0.69 0.5-1.4 mg/dL EGFR > 60 NOTE: For -[place]ren[place] individuals, multiply the result by 1.210. Chronic Kidney Disease: Estimated GFR < 60 mL/min/1.73m2 Severe Kidney Disease: Estimated GFR < 15 mL/min/1.73m2 FBS 91 60-99 mg/dL CA 9.1 8.4-10.2 mg/dL Iron 108 30-160 mcg/dL TIBC 356 228-428 mcg/dL Saturation 30 15-50 % UIBC 248 ug/dL Total Bili 0.5 0.0-1.0 mg/dL AST (GOT) 14 5-31 U/L ALT (GPT) 16 0-31 U/L Protein, Total 7.5 6.5-8.0 g/dL Alb 3.7 3.5-5.0 g/dL Triglyceride 124 <150 mg/dL Desirable Triglyceride: less than 150 mg/dL Borderline High Triglyceride 150-199 mg/dL High Triglyceride: 200-499 mg/dL Very High Triglyceride: greater than or equal to 5OO mg/dL Cholesterol 295 H <200 mg/dL Desirable Cholesterol: less than 200 mg/dL Borderline High Cholesterol: 200-239 mg/dL High Cholesterol: greater than 239 mg/dL LDL Calculated 208 H <100 mg/dL Desirable LDL: less than 100 mg/dL Near Optimal/Above Optimal LDL: 110-129 mg/dL Borderline High LDL: 130-159 mg/dL High LDL: 160-189 mg/dL Very High LDL: greater than or equal to 190 mg/dL HDL 63 >40 mg/dL Desirable HDL: greater than 40 mg/dL Note: This HDL assay may give artificially low results in patients with liver disease. Alk Phos 71 39-117 U/L Vit D 25-OH Tot 42.6 >30 ng/mL Health Based Reference Values* < 20 ng/mL Deficient 20-30 ng/mL Insufficient > 30 ng/mL Sufficient *Agapito HERRERA. N Engl J Med. 2007;357:266-280 Care must be taken in interpreting Vitamin D results from different laboratories and methodologies. Published data demonstrated that results from patients undergoing hemodialysis may show a negative bias when tested with various automated 25-OH vitamin D assays when compared to LC-MS/MS. When testing samples from patients whose predominant form of Vitamin D is Vitamin D2, such as patients receiving Vitamin D2 supplementation, results that are subtherapeutic should be confirmed with another method such as LC-MS/MS. TSH 1.89 0.32-4.0 uIU/mL Assessment and Plan Assessment & Plan (1) Obesity (BMI 30.0-34.9): Code(s): E66.9 - Obesity, unspecified Plan: Schedule nurse navigator visit in a week to discuss nutrition and diet, stressed importance of doing regular weight-bearing exercises on a daily basis and following recommended diet. (2) Essential hypertension: Code(s): I10 - Essential (primary) hypertension Plan: Blood pressure not at goal of less than 130/80. Started lisinopril 5 mg taken once a day in a.m... Reinforced importance of following a low sodium diet, getting regular exercise, and lowering stress levels. Check blood pressure with nurse navigator in a week (3) Mixed dyslipidemia: Code(s): E78.2 - Mixed hyperlipidemia Plan: Reviewed recent fasting lipid profile with patient with levels markedly elevated . Started on atorvastatin 10 mg per tablet to take once a day , in addition to adherence to low-cholesterol diet and regular exercise, at least 30 minutes 3 to 4 times a week. Advised patient to make healthy food choices, eat more fruits, vegetables, whole grains, wild caught fish and low-fat dairy. Limit amount of meat and fried or fatty food products, as well as processed foods and fast foods. Follow-up scheduled with repeat fasting lipid panel in 3 months. Orders: Orders Lipid Panel 08/11/23 E66.9 - Obesity, unspecified, I10 - Essential (primary) hypertension Aspartate Amino Transferase 08/11/23 E66.9 - Obesity, unspecified, I10 - Essential (primary) hypertension Basic Metabolic Panel Fasting 08/11/23 E66.9 - Obesity, unspecified, I10 - Essential (primary) hypertension Alanine Aminotransferase 08/11/23 E66.9 - Obesity, unspecified, I10 - Essential (primary) hypertension Medications: New atorvastatin 10 mg PO DAILY 90 tabs 1RF E66.9 - Obesity, unspecified, I10 - Essential (primary) hypertension lisinopril 5 mg PO DAILY 30 tabs 1RF Coding Level of Care Code Est Pt Level 4 (49778) Diagnoses Obesity (BMI 30.0-34.9) E66.9 Essential hypertension I10 Mixed dyslipidemia E78.2
[2023-05-11 13:13] VITALS: BP 142/90; PULSE 83; O2SAT 99; BMI 35.0
== END 2023-05-11 13:58 | disposition home or self-care (01) ==
PROVIDERS: PCP Internal Medicine; Visit Provider Internal Medicine
DX: I10 Essential (primary) hypertension (principal); E78.2 Mixed hyperlipidemia; E66.9 Obesity, unspecified; Z68.35 Body mass index [BMI] 35.0-35.9, adult
CPT/HCPCS: 99214

== ENCOUNTER → 2023-07-21 08:45 | Outpatient (BNV) | payer BC, SELFPAY | PROVIDERS: PCP Internal Medicine; Visit Provider Radiology Diagnostic Radiology | DX: Z12.31 Encounter for screening mammogram for malignant neoplasm of breast (principal) | CPT/HCPCS: 77063; 77067 ==

== ENCOUNTER 2023-07-21 08:50 | Outpatient (REF) | payer BC, SELFPAY | END 2023-07-21 08:51 | disposition home or self-care (01) | LOC: HO.MAMMO 08:50 | PROVIDERS: PCP Internal Medicine; Visit Provider Internal Medicine | DX: Z12.31 Encounter for screening mammogram for malignant neoplasm of breast (principal) | CPT/HCPCS: 77063; 77067 ==

== ENCOUNTER 2023-08-23 15:16 | Outpatient (AMB) | payer BC, SELFPAY ==
[2023-08-23 15:21] VITALS: BP 128/74; PULSE 78; O2SAT 94; BMI 34.4
--- NOTE | 2023-08-23 15:21 | MHC.PC.OV ---
Vital Signs 08/23/23 15:21 Height 5 ft 1 in Weight 182 lb 2 oz BMI 34.4 BP 128/74 Blood Pressure Location Lt brachial Position Sitting Pulse 78 Pulse Source Pulse Oximeter Pulse Oximetry (%) 94 Oxygen Delivery Method Room Air Intake Visit Reasons: 3M F/U Intake Note: Pt is here today for 3M follow up Allergies No Known Allergies Allergy (Verified 08/23/23 15:28) Medication List - Last Reconciled 08/23/23 by Tamiko Laurent MD adalimumab (Humira(CF) Pen) 40 mg subcut Q2W atorvastatin 10 mg PO DAILY ferrous fumarate 325 mg PO DAILY lisinopril 5 mg PO DAILY Tobacco use date assessed: 08/23/23 Dental Screening Dental Screen Date: 08/23/23 Did you have a dental visit in the last 12 months?: Yes Did you have a dental problem in the last 6 months where you did not have access to dental care?: No Was dental information given to patient?: Patient has dentist HPI 3M F/U HPI Details 47-year-old lady with hyperlipidemia, history of anemia, hypertension, psoriasis, and obesity, here today for follow-up. Has been compliant with taking her medications. Blood pressure today within normal limits. However she has not been able to lose any weight, tries to follow recommended diet but has not been able to find any time to exercise regularly due to her work schedule and commitments at home. Has hyperlipidemia, currently on atorvastatin 10 mg daily, but has not yet had her repeat fasting labs done [facility] Medical History Essential hypertension Vitamin D deficiency Hypochromic microcytic anemia Mixed dyslipidemia Hyperlipidemia Psoriasis Cervical cancer screening Anemia Obesity (BMI 30.0-34.9) Surgical History H/O tubal ligation Previous section Family History Father Insulin dependent type 1 diabetes mellitus Mother CAD (coronary artery disease) H/O heart artery stent Hypercholesteremia Sister Thyroid disorder Essential hypertension Social History Housing: House Patient Tobacco Use Status: Never used Tobacco e-Cigarette/Vaping Use: Never Used service: No Current occupational status: employed 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 How often do you have a drink containing alcohol?: Monthly or less 2. How many drinks containing alcohol do you have on a typical day when you are drinking?: 1 or 2 3. How often do you have six or more drinks on one occasion?: Never Total Score: 1 Score Reviewed/Action Taken: Yes LAWANDA-7 AMB Questionnaire LAWANDA-7 Date LAWANDA - 7 assessed: 05/11/23 Source: Developed by Drs. Antonio Salazar, Radha Davison, Baltazar Borges and colleagues, with an educational roberta from [employer]. Review of Systems Const Denies body aches, Denies fatigue, Denies fever(s), Denies headache(s) and Denies weakness Eyes Denies change in vision ENT Denies dizziness, Denies headache(s), Denies nasal congestion, Denies nasal discharge and Denies sore throat Card Denies chest pain, Denies lightheadedness, Denies palpitations and Denies dyspnea Resp Denies chest congestion, Denies cough, Denies dyspnea and Denies wheezing GI Denies abdominal pain, Denies change in bowel habits and Denies heartburn Denies hematuria, Denies urinary frequency, Denies dysuria and Denies urinary urgency Musc Reports no additional complaints Neuro Denies dizziness, Denies headache(s) and Denies weakness Psych Reports no additional complaints Endo Denies fatigue, Denies polydipsia, Denies polyuria and Denies palpitations José Miguel/Lymph Denies easy bruising Aller/Immun Denies seasonal rhinorrhea and Denies wheezing Physical exam (Primary Care) Vital Signs: Last Vital Signs Pulse 78 08/23/23 15:21 BP 128/74 08/23/23 15:21 Pulse Ox 94 08/23/23 15:21 Oxygen Delivery Method Room Air 08/23/23 15:21 BMI result Body Mass Index 34.4 BMI Assessment/Plan discussion: High BMI High, discussed plan: lifestyle, weight reduction, dietary and physical activity Tobacco/Smoking Status: Tobacco use Status Tobacco use date assessed 06/13/24 06/13/24 15:24 Patient Tobacco Use Status Never used Tobacco 08/23/23 15:24 e-Cigarette/Vaping Use Never Used 08/23/23 15:24 Thrive Assessment: Date of Thrive Assessment Date Thrive assessed 05/11/23 08/23/23 15:24 Const General: comfortable, no acute distress and alert Nutritional Appearance: obese Orientation/consciousness: patient oriented x3 Neck Neck: Yes full ROM, Yes no lymphadenopathy and Yes supple Thyroid: Thyroid normal (Nonpalpable) Resp Effort & Inspection: normal respiratory effort and able to speak in complete sentences Auscultation: clear to auscultation bilaterally Cardio Rate: regular rate Rhythm: regular rhythm Heart sounds: S1 normal heart sound present and S2 normal heart sound present GI Inspection: Yes obesity Palpation (GI): Soft to palpation, nontender, no guarding and no masses Auscultation: normal bowel sounds Back/Spine/Pelvis Back: No back tenderness Neuro General: patient oriented x3, gait normal, tone normal, moves all extremities, Normal light touch and pain sensation, no focal motor deficits and CN's II-XI intact bilaterally Gait exam (Neuro): Normal gait present Extrem General: Yes full ROM, Yes no joint enlargement, Yes no clubbing, cyanosis or edema and Yes normal gait Assessment and Plan Assessment & Plan (1) Mixed dyslipidemia: Code(s): E78.2 - Mixed hyperlipidemia Plan: Continue on atorvastatin, reminded to get fasting labs done to check lipids. Continue with recommended low-cholesterol diet and getting regular exercise. (2) Obesity (BMI 30.0-34.9): Code(s): E66.9 - Obesity, unspecified Plan: Prescription sent for phentermine 30 mg per tablet to take once a day as directed 2 hours after breakfast combined this with diet and exercise. See me back for follow-up in 4 weeks after starting medication (3) Essential hypertension: Code(s): I10 - Essential (primary) hypertension Plan: Blood pressure at goal of less than 130/80. Continue with current medication. Reinforced importance of following a low sodium diet, getting regular exercise, and lowering stress levels. Medications: New phentermine must administer 2 hours after breakfast 30 mg PO DAILY 30 caps 0RF Coding Level of Care Code Est Pt Level 4 (66455) Diagnoses Mixed dyslipidemia E78.2 Obesity (BMI 30.0-34.9) E66.9 Essential hypertension I10
== END 2023-08-23 15:45 | disposition home or self-care (01) ==
PROVIDERS: PCP Internal Medicine; Visit Provider Internal Medicine
DX: E78.2 Mixed hyperlipidemia (principal); E66.9 Obesity, unspecified; I10 Essential (primary) hypertension; Z68.34 Body mass index [BMI] 34.0-34.9, adult
CPT/HCPCS: 99214

== ENCOUNTER 2023-10-10 11:31 | Outpatient (REF) | payer BC, SELFPAY ==
[2023-10-10 11:45] LABS: MANUAL DIFF FLAG NO
[2023-10-10 11:55] LABS: Basophils Percent Auto 0.5 % (0-2); Eosinophils Absolute Auto 0.2 X10*3/uL (0.0-0.4); Eosinophils Percent Auto 2.7 % (0-4); Hematocrit 42.7 % (37.0-47.0); Hemoglobin 13.7 g/dl (12.0-16.0); Imm Gran Abs Auto 0.02 X10*3/uL (0.00-0.03); Imm Gran Pct Auto 0.3 % (0.0-0.4); Lymphocytes Absolute Auto 2.7 X10*3/uL (1.2-4.9); Lymphocytes Percent Auto 40.8 % (20-40); Mean Corpuscular HGB Conc 32.1 g/dl (31.0-35.0); Mean Corpuscular Hemoglobin 28.4 pg (27.0-33.0); Mean Corpuscular Volume 88.4 fL (80.0-98.0); Mean Platelet Volume 9.8 fL (9.4-12.3); Monocytes Absolute Auto 0.4 X10*3/uL (0.1-1.2); Monocytes Percent Auto 6.1 % (2-11); Neutrophils Absolute Auto 3.3 x10*3/uL (2.0-8.3); Neutrophils Percent Auto 49.6 % (45-73); Platelet Count 280 X10*3/uL (160-400); Red Blood Count 4.83 X10*6/uL (4.20-5.50); Red Cell Distribution Width 14.8 % (11.0-16.0); White Blood Count 6.6 X10*3/uL (4.8-10.8)
[2023-10-10 12:35] LABS: Alanine Aminotransferase 16 U/L (0-31); Anion Gap 12 (12-20); Aspartate Amino Transferase 16 U/L (5-31); Blood Urea Nitrogen 11 mg/dL (9-16); Calcium 9.5 mg/dL (8.4-10.2); Carbon Dioxide 23 mmol/L (22-29); Chloride 106 mmol/L (96-108); Cholesterol 215 mg/dL (<200); Estimated Glomerular Filt Rate > 60; Glucose Fasting 103 mg/dL (60-99); HDL Cholesterol 58 mg/dL (>40); Iron 52 mcg/dL (30-160); LDL Cholesterol Calculated 128 mg/dL (<100); Percent Iron Saturation 15 % (15-50); Potassium 3.7 mmol/L (3.3-5.1); Sodium 137 mmol/L (135-145); Total Iron Binding Capacity 356 mcg/dL (228-428); Triglycerides 148 mg/dL (<150); Unsaturated Iron Binding 304 ug/dL
[2023-10-10 12:51] LABS: Vitamin D 25-OH Total 42.3 ng/mL (>30)
== END 2023-10-10 11:32 | disposition home or self-care (01) ==
LOC: HO.LAB 11:31
PROVIDERS: PCP Internal Medicine; Visit Provider Internal Medicine
DX: I10 Essential (primary) hypertension (principal); E66.9 Obesity, unspecified; Z13.220 Encounter for screening for lipoid disorders; Z13.1 Encounter for screening for diabetes mellitus; S90.32XA Contusion of left foot, initial encounter; D64.9 Anemia, unspecified
CPT/HCPCS: 36415; 80048; 80061; 82306; 83540; 84450; 84460; 85025

== ENCOUNTER 2023-11-15 11:38 | Outpatient (AMB) | payer BC, SELFPAY ==
--- NOTE | 2023-11-15 11:47 | MHC.PC.OV ---
Vital Signs 11/15/23 11:48 Height 5 ft 1 in Weight 184 lb BMI 34.8 BP 120/82 Blood Pressure Location Lt brachial Position Sitting Pulse 86 Pulse Source Pulse Oximeter Pulse Oximetry (%) 98 Oxygen Delivery Method Room Air Intake Visit Reasons: Follow up Intake Note: Patient here to f/u on labs. Allergies No Known Allergies Allergy (Verified 08/23/23 15:28) Medication List - Last Reconciled 11/15/23 by Tamiko Laurent MD adalimumab (Humira(CF) Pen) 40 mg subcut Q2W atorvastatin 10 mg PO DAILY lisinopril 5 mg PO DAILY Tobacco use date assessed: 08/23/23 Dental Screening Dental Screen Date: 08/23/23 Did you have a dental visit in the last 12 months?: Yes Did you have a dental problem in the last 6 months where you did not have access to dental care?: No Was dental information given to patient?: Patient has dentist HPI Follow up HPI Details 47-year-old lady with obesity, hyperlipidemia, and hypertension, here today for her follow-up. She has been compliant with taking her medications, but admits to not relief following any particular diet and has not been getting any regular exercise. Patient states that his just do stressful at work, has no time to get her exercise done. She has started taking again atorvastatin 10 mg daily, has been on it now for at least a month. Recent fasting labs showed marked improvement in her lipids, and her blood pressure is stable and controlled on present treatment. She was prescribed phentermine for help with weight loss on last visit. Patient however unable to tolerate medication as it was making her blood pressure go up and was giving her palpitations. REPLACED BY [facility] Medical History Essential hypertension Vitamin D deficiency Hypochromic microcytic anemia Mixed dyslipidemia Hyperlipidemia Psoriasis Cervical cancer screening Anemia Obesity (BMI 30.0-34.9) Surgical History H/O tubal ligation Previous section Family History Father Insulin dependent type 1 diabetes mellitus Mother CAD (coronary artery disease) H/O heart artery stent Hypercholesteremia Sister Thyroid disorder Essential hypertension Social History Housing: House Patient Tobacco Use Status: Never used Tobacco e-Cigarette/Vaping Use: Never Used service: No Current occupational status: employed 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 1. Little interest or pleasure in doing things: not at all 2. Feeling down, depressed, or hopeless: not at all 3. Trouble falling or staying asleep, or sleeping too much: not at all 4. Feeling tired or having little energy: nearly every day 5. Poor appetite or overeating: nearly every day 6. Feeling bad about yourself - or that you are a failure or have let yourself or your family down: not at all 7. Trouble concentrating on things, such as reading the newspaper or watching television: not at all 8. Moving or speaking so slowly that other people could have noticed. Or the opposite - being so fidgety or restless that you have been moving around a lot more than usual: several days 9. Thoughts that you would be better off or of hurting yourself in some way: not at all Total score: 7 Depression Screening Interpretation: Negative Depression Screening Done: Yes 62577 - PHQ-9 Billing: Yes Source: Developed by Drs. Antonio Salazar, Radha Davison, Baltazar Borges and colleagues, with an educational roberta from [employer]. Thrive Questionnaire Date Thrive assessed: 05/11/23 I am a: Patient What is your living situation today?: I have a steady place to live Within the past 12 months, did the food you bought not last and you didn't have the money to get more?: Sometimes True Within the past 12 months, did you worry whether your food would run out before you got money to buy more?: Never true Do you have trouble paying for medicines?: No Do you have trouble getting transportation to medical appointments?: No Do you have trouble paying your heating and electricity bill?: No Do you have trouble taking care of your child, family member or friend?: No Do you have trouble with day-to-day activities such as bathing, preparing meals, shopping, managing finances, etc.?: No Are you currently unemployed and looking for a job?: No Are you interested in more education?: Yes Please select the resources that you would like help with: Job search/training Currently or been in a relationship where the following occur: No concerns reported THRIVE Score: 1 AUDIT C Alcohol Use Questionnaire (AUDIT-C) 1. How often do you have a drink containing alcohol?: Never Total Score: 0 LAWANDA-7 AMB Questionnaire LAWANDA-7 Date LAWANDA - 7 assessed: 05/11/23 Feeling nervous, anxious, or on edge: 0 = Not at all Not being able to stop or control worryin = Not at all Worrying too much about different things: 0 = Not at all Trouble relaxin = Not at all Being so restless that it is hard to sit still: 0 = Not at all Becoming easily annoyed or irritable: 0 = Not at all Feeling afraid as if something awful might happen: 0 = Not at all Total LAWANDA-7 score (0-4 normal; 5-9 mild; 10-14 moderate; 15-21 severe): 0 Source: Developed by Drs. Antonio Salazar, Radha Davison, Baltazar Borges and colleagues, with an educational roberta from [employer]. LAWANDA-7 Assessment Billing LAWANDA-7 Assessment Tool: LAWANDA-7 Assessment 18549 Review of Systems Const Denies body aches, Denies fever(s), Denies headache(s) and Denies weakness Eyes Denies change in vision ENT Denies dizziness, Denies headache(s), Denies nasal congestion, Denies nasal discharge and Denies sore throat Card Denies chest pain, Denies lightheadedness, Denies palpitations and Denies dyspnea Resp Denies chest congestion, Denies cough, Denies dyspnea and Denies wheezing GI Denies abdominal pain, Denies change in bowel habits and Denies heartburn Denies hematuria, Denies urinary frequency, Denies dysuria and Denies urinary urgency Musc Reports no additional complaints Skin/Breast Denies furuncle, Denies dry skin and Denies rash Neuro Denies dizziness, Denies headache(s) and Denies weakness Psych Reports no additional complaints Endo Denies polydipsia, Denies polyuria and Denies palpitations Aller/Immun Denies seasonal rhinorrhea and Denies wheezing Physical exam (Primary Care) Vital Signs: Last Vital Signs Pulse 86 11/15/23 11:48 BP 120/82 11/15/23 11:48 Pulse Ox 98 11/15/23 11:48 Oxygen Delivery Method Room Air 11/15/23 11:48 BMI result Body Mass Index 34.8 BMI Assessment/Plan discussion: High BMI High, discussed plan: lifestyle, weight reduction, dietary and physical activity Tobacco/Smoking Status: Tobacco use Status Tobacco use date assessed 08/23/23 11/15/23 11:49 Patient Tobacco Use Status Never used Tobacco 11/15/23 11:49 e-Cigarette/Vaping Use Never Used 11/15/23 11:49 Depression Screening Interpretation: Negative Thrive Assessment: Date of Thrive Assessment Date Thrive assessed 05/11/23 11/15/23 11:49 Currently or been in a relationship where the following occur: No concerns reported Const General: no acute distress Nutritional Appearance: obese Orientation/consciousness: patient oriented x3 Neck Neck: Yes full ROM, Yes no lymphadenopathy and Yes supple Thyroid: Thyroid normal (Nonpalpable) Resp Effort & Inspection: normal respiratory effort and able to speak in complete sentences Auscultation: clear to auscultation bilaterally Cardio Rate: regular rate Rhythm: regular rhythm Heart sounds: S1 normal heart sound present and S2 normal heart sound present GI Inspection: Yes obesity Palpation (GI): Soft to palpation, nontender, no guarding and no masses Auscultation: normal bowel sounds Back/Spine/Pelvis Back: No back tenderness Skin General skin exam: no rashes or lesions noted Neuro General: patient oriented x3, gait normal, tone normal, moves all extremities, Normal light touch and pain sensation, no focal motor deficits and CN's II-XI intact bilaterally Gait exam (Neuro): Normal gait present Extrem General: Yes full ROM, Yes no joint enlargement, Yes no clubbing, cyanosis or edema and Yes normal gait Psych Mental Status: mental status grossly normal Speech and movement: Normal speech and movement present Affect: normal affect Assessment and Plan Assessment & Plan (1) Obesity (BMI 30.0-34.9): Code(s): E66.9 - Obesity, unspecified Plan: Unable to tolerate phentermine, insurance not covering any other weight loss medication. [place] [facility] [place] evaluation management, patient interested in getting the laparoscopic gastric sleeve surgery Orders: Referrals Medical Weight Management Referral E66.9 - Obesity, unspecified Coding Level of Care Code Est Pt Level 4 (06778) Diagnoses Obesity (BMI 30.0-34.9) E66.9 Additional Codes LAWANDA-7 Assessment Billing - LAWANDA-7 Assessment Tool: LAWANDA-7 Assessment 57150 ([id number])
[2023-11-15 11:48] VITALS: BP 120/82; PULSE 86; O2SAT 98; BMI 34.8
== END 2023-11-15 13:15 | disposition home or self-care (01) ==
PROVIDERS: PCP Internal Medicine; Visit Provider Internal Medicine
DX: E66.9 Obesity, unspecified (principal); Z68.34 Body mass index [BMI] 34.0-34.9, adult
CPT/HCPCS: 99214

== ENCOUNTER → 2023-11-20 07:57 | Outpatient (BNVA) | payer BC, SELFPAY | PROVIDERS: PCP Internal Medicine; Visit Provider Physician Assistant Surgical ==

== ENCOUNTER 2024-01-15 08:26 | Outpatient (REF) | payer BC, SELFPAY ==
[2024-01-17 08:52] LABS: Rubella IgG Antibody 6.42 Index
[2024-01-18 06:13] LABS: TS Negative Control Passed; TS Panel A 0; TS Panel B 0; TS Positive Control Passed; TSpotTB Negative (Negative)
== END 2024-01-15 08:27 | disposition home or self-care (01) ==
LOC: HO.LAB 08:26
PROVIDERS: PCP Internal Medicine; Visit Provider Internal Medicine
DX: Z11.1 Encounter for screening for respiratory tuberculosis (principal); Z78.9 Other specified health status
CPT/HCPCS: 36415; 86481; 86735; 86762; 86765

== ENCOUNTER 2024-04-11 13:47 | Outpatient (AMB) | payer BC, SELFPAY ==
--- NOTE | 2024-04-11 14:06 | AM.OFFWIN_ITS ---
Intake Vital Signs 04/11/24 14:09 Weight 188 lb BP 122/80 Blood Pressure Location Lt brachial Position Sitting Pulse 78 Pulse Source Pulse Oximeter Temp 98.8 F Temp Source Oral Pulse Oximetry (%) 94 Oxygen Delivery Method Room Air Intake Visit Reasons: EP Cough, chest congestion, wheezing, headache Intake Note: Patient here for cough, chest congestion, body chills and headache that started over the weekend. Patient Tobacco Use Status: Never used Tobacco Allergies No Known Allergies Allergy (Verified 04/11/24 14:10) Do you need a note to return to daycare/school/sports/work: Yes HPI HPI Comments History of Present Illness Details 48 y/o female patient who presents to [facility] walk in clinic with c/o cough, chest congestion and chest tightness since Sunday. [facility] Medical History (Updated 04/11/24 @ 14:46 by Larissa Conde NP) Acute respiratory disease Cough Wheezing on auscultation Essential hypertension Vitamin D deficiency Hypochromic microcytic anemia Mixed dyslipidemia Hyperlipidemia Psoriasis Cervical cancer screening Anemia Obesity (BMI 30.0-34.9) Surgical History H/O tubal ligation Previous section Family History Father Insulin dependent type 1 diabetes mellitus Mother CAD (coronary artery disease) H/O heart artery stent Hypercholesteremia Sister Thyroid disorder Essential hypertension Social History (Updated 11/20/23 @ 10:52 by Nettie Moseley CMA) Housing: House Alcohol intake: current Alcohol intake frequency: holidays/special occasions only Alcohol type: wine and hard liquor Patient Tobacco Use Status: Never used Tobacco e-Cigarette/Vaping Use: Never Used service: No Current occupational status: employed 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[employer] Cognitive needs: No Hearing needs: No Vision needs: No Review of Systems Const All systems reviewed & are unremarkable except as noted in HPI and below Physical Exam Vital Signs: Last Vital Signs Temp 98.8 F 04/11/24 14:09 Pulse 78 04/11/24 14:09 BP 122/80 04/11/24 14:09 Pulse Ox 94 04/11/24 14:09 Oxygen Delivery Method Room Air 04/11/24 14:09 Const General: cooperative and no acute distress Nutritional Appearance: overweight Orientation/consciousness: patient oriented x3 HEENT Head: Yes normocephalic Ears: external ears normal and TM abnormal bulging bilateral and with fluid behind the TM bilateral Face and sinus: Yes sinuses nontender Mouth: moist mucous membranes Throat: Yes uvula midline Resp Effort & Inspection: normal respiratory effort, able to speak in complete sentences and Actively coughing Auscultation: clear to auscultation bilaterally, no crackles, no rales, rhonchi and wheezes Cardio Heart sounds: S1 normal heart sound present and S2 normal heart sound present Neuro General: patient oriented x3 Office Procedures Nebulizer Treatment Nebulizer Treatment 02650-Nefafbrci/MDI RX initial, or Nebulizer Subsequent Treatment Office Meds ipratropium 0.5 mg-albuterol 3 mg (2.5 mg base)/3 mL nebulization soln Performing Provider: Larissa Conde NP Performing Location[place] [facility] [place] [facility] Administered by: Larissa Conde NP on 04/11/24 14:56 Dose Route Admin Location Dispensed Lot Number Expiration Date [facility] Php [employer] 3 mL inhalation 3 mL [id number] 05/09/25 85770-549-85 [employer] Assessment & Plan Assessment & Plan (1) Wheezing on auscultation: Code(s): R06.2 - Wheezing Plan: Ordered Neb Tx in Office Ordered Prednisone. (2) Cough: Code(s): R05.9 - Cough, unspecified Qualifiers: Cough type: acute Qualified Code(s): R05.1 - Acute cough Plan: Ordered Benzonatate. (3) Acute respiratory disease: Code(s): J06.9 - Acute upper respiratory infection, unspecified Plan: Ordered SARs Orders: Orders SARS-CoV2/FLU/RSV Today J06.9 - Acute upper respiratory infection, unspecified AMB Nebulizer Treatment Today R05.1 - Acute cough, R06.2 - Wheezing Medications: New prednisone 50 mg PO DAILY 5 days 5 tabs 0RF R05.1 - Acute cough, R06.2 - Wheezing benzonatate 100 mg PO TID 60 caps 0RF R05.1 - Acute cough ipratropium-albuterol 0.5 mg-3 mg(2.5 mg base)/3 mL 3 mL inhalation ONCE 3 mL 0RF wheezing R05.1 - Acute cough, R06.2 - Wheezing azithromycin 500 mg PO DAILY 3 days 3 tabs 0RF J06.9 - Acute upper respiratory infection, unspecified, R05.1 - Acute cough Coding Level of Care Code Est Pt Level 4 (43888) Diagnoses Wheezing on auscultation R06.2 Acute cough R05.1 Cough type: acute Acute respiratory disease J06.9 CPT Codes Nebulizer Treatment - Nebulizer Treatment, initial or subsequent: 05160- Nebulizer/MDI RX initial, or Nebulizer Subsequent Treatment ([id number]) Time Spent (min) 20
[2024-04-11 14:09] VITALS: BP 122/80; PULSE 78; TEMP 37.1; O2SAT 94
== END 2024-04-11 14:47 | disposition home or self-care (01) ==
PROVIDERS: PCP Internal Medicine; Visit Provider Nurse Practitioner Family
DX: R06.2 Wheezing (principal); R05.1 Acute cough; J06.9 Acute upper respiratory infection, unspecified

== ENCOUNTER 2024-04-11 13:47 | Outpatient (REF) | payer BC, SELFPAY ==
[2024-04-11 17:17] LABS: Influenza A PCR POSITIVE (Negative); Influenza B PCR NEGATIVE (Negative); Resp Syncy Virus RNA Qual PCR NEGATIVE (Negative); SARS COV2 PCR INHOUSE NEGATIVE (Negative)
== END 2024-04-11 13:48 | disposition home or self-care (01) ==
LOC: HO.LAB 13:47
PROVIDERS: PCP Internal Medicine; Visit Provider Nurse Practitioner Family
DX: J06.9 Acute upper respiratory infection, unspecified (principal)
CPT/HCPCS: 0241U; 94640

== ENCOUNTER 2024-07-22 08:38 | Outpatient (AMB) | payer BC, SELFPAY ==
--- NOTE | 2024-07-22 09:01 | A.OFFPC_ITS ---
Vital Signs 07/22/24 09:15 Height 5 ft Weight 191 lb BMI 37.3 BP 128/88 Blood Pressure Location Lt brachial Position Sitting Respiration 16 Pulse 93 Pulse Source Pulse Oximeter Temp 98.0 F Temp Source Oral Pulse Oximetry (%) 100 Oxygen Delivery Method Room Air Intake Visit Reasons: Annual PE - see comments Intake Note: Pt is here today for her PE: Last mammogram 07/21/23, papsmear 11/15/22 Allergies No Known Allergies Allergy (Verified 07/22/24 09:40) Medication List - Last Reconciled 07/22/24 by Tamiko Laurent MD adalimumab (Humira(CF) Pen) 40 mg subcut Q2W atorvastatin 10 mg PO DAILY lisinopril 5 mg PO DAILY Tobacco use date assessed: 07/22/24 Dental Screening Dental Screen Date: 07/22/24 HPI Annual PE - see comments HPI Details 48-year-old lady with history of obesity , hyperlipidemia, hypertension, psoriasis here today for a physical exam. She has been taking her medications irregularly and states that she has been drinking be juice every morning to help control her blood pressure which has been within normal limits. Has not yet had her fasting labs done. Complains of gaining weight, does have a strong craving for sweets, tries to exercise but not regularly due to work schedule. Has tried phentermine in the past but developed severe headaches with it. Will try her on Ozempic today She is due for her screening colonoscopy has a Cologuard kit already sent to her house, advised to do her colon cancer screening. Has an appointment for her screening mammogram already scheduled. Last Pap smear was done in 2022 with normal findings, will repeat next year. [facility] Medical History (Updated 07/22/24 @ 09:57 by Tamiko Laurent MD) Impaired fasting glucose Acute respiratory disease Cough Wheezing on auscultation Essential hypertension Vitamin D deficiency Hypochromic microcytic anemia Mixed dyslipidemia Hyperlipidemia Psoriasis Cervical cancer screening Anemia Obesity (BMI 30.0-34.9) Surgical History H/O tubal ligation Previous section Family History Father Insulin dependent type 1 diabetes mellitus Mother CAD (coronary artery disease) H/O heart artery stent Hypercholesteremia Sister Thyroid disorder Essential hypertension Social History Housing: House Alcohol intake: current Alcohol intake frequency: holidays/special occasions only Alcohol type: wine and hard liquor Patient Tobacco Use Status: Never used Tobacco e-Cigarette/Vaping Use: Never Used service: No Current occupational status: employed 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[employer] Cognitive needs: No Hearing needs: No Vision needs: No Questionnaire PHQ-9 Over the last 2 weeks, how often have you been bothered by any of the following problems? 1. Little interest or pleasure in doing things: not at all 2. Feeling down, depressed, or hopeless: not at all 3. Trouble falling or staying asleep, or sleeping too much: nearly every day 4. Feeling tired or having little energy: nearly every day 5. Poor appetite or overeating: not at all 6. Feeling bad about yourself - or that you are a failure or have let yourself or your family down: not at all 7. Trouble concentrating on things, such as reading the newspaper or watching television: several days 8. Moving or speaking so slowly that other people could have noticed. Or the opposite - being so fidgety or restless that you have been moving around a lot more than usual: not at all 9. Thoughts that you would be better off or of hurting yourself in some way: not at all Total score: 7 Depression Screening Interpretation: Negative Depression Screening Done: Yes 96546 - PHQ-9 Billing: Yes Source: Developed by Drs. Antonio Salazar, Radha Davison, Baltazar Borges and colleagues, with an educational roberta from [employer]. Thrive Questionnaire Date Thrive assessed: 07/22/24 I am a: Patient What is your living situation today?: I have a steady place to live Within the past 12 months, did the food you bought not last and you didn't have the money to get more?: Never true Within the past 12 months, did you worry whether your food would run out before you got money to buy more?: Never true Do you have trouble paying for medicines?: No Do you have trouble getting transportation to medical appointments?: No Do you have trouble paying your heating and electricity bill?: No Do you have trouble taking care of your child, family member or friend?: No Do you have trouble with day-to-day activities such as bathing, preparing meals, shopping, managing finances, etc.?: No Are you currently unemployed and looking for a job?: No Are you interested in more education?: No Please select the resources that you would like help with: None Currently or been in a relationship where the following occur: No concerns reported THRIVE Score: 0 AUDIT C Alcohol Use Questionnaire (AUDIT-C) 1. How often do you have a drink containing alcohol?: Monthly or less 2. How many drinks containing alcohol do you have on a typical day when you are drinking?: 1 or 2 3. How often do you have six or more drinks on one occasion?: Never Total Score: 1 LAWANDA-7 AMB Questionnaire LAWANDA-7 Date LAWANDA - 7 assessed: 07/22/24 Feeling nervous, anxious, or on edge: 0 = Not at all Not being able to stop or control worryin = Not at all Worrying too much about different things: 1 = Several days Trouble relaxin = Several days Being so restless that it is hard to sit still: 0 = Not at all Becoming easily annoyed or irritable: 0 = Not at all Feeling afraid as if something awful might happen: 0 = Not at all Total LAWANDA-7 score (0-4 normal; 5-9 mild; 10-14 moderate; 15-21 severe): 2 Source: Developed by Drs. Antonio Salazar, Radha Davison, Baltazar Borges and colleagues, with an educational roberta from [employer]. Review of Systems Const Denies body aches, Denies fever(s), Denies headache(s) and Denies weakness Eyes Reports blurry vision (Both with distance and reading) ENT Denies dizziness, Denies headache(s), Denies nasal congestion, Denies nasal discharge and Denies sore throat Card Denies chest pain, Denies lightheadedness, Denies palpitations and Denies dyspnea Resp Denies chest congestion, Denies cough, Denies dyspnea and Denies wheezing GI Denies abdominal pain, Denies change in bowel habits and Denies heartburn Denies hematuria, Denies urinary frequency, Denies dysuria and Denies urinary urgency Musc Reports no additional complaints Skin/Breast Details: Has psoriasis currently on Humira 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 Denies furuncle and Denies dry skin Neuro Denies dizziness, Denies headache(s) and Denies weakness Psych Reports no additional complaints Endo Denies polydipsia, Denies polyuria and Denies palpitations José Miguel/Lymph Reports no additional complaints Aller/Immun Denies seasonal rhinorrhea and Denies wheezing Physical exam (Primary Care) Vital Signs: Last Vital Signs Temp 98.0 F 07/22/24 09:15 Pulse 93 07/22/24 09:15 Resp 16 07/22/24 09:15 BP 128/88 07/22/24 09:15 Pulse Ox 100 07/22/24 09:15 Oxygen Delivery Method Room Air 07/22/24 09:15 BMI result Body Mass Index 37.3 BMI Assessment/Plan discussion: High BMI High, discussed plan: lifestyle, weight reduction, dietary and physical activity Tobacco/Smoking Status: Tobacco use Status Tobacco use date assessed 07/22/24 07/22/24 09:03 Patient Tobacco Use Status Never used Tobacco 07/22/24 09:03 e-Cigarette/Vaping Use Never Used 07/22/24 09:03 PHQ-9: PHQ-9 Score PHQ-9: Total score 7 07/22/24 09:40 Depression Screening Interpretation: Negative Thrive Assessment: Date of Thrive Assessment Date Thrive assessed 07/22/24 07/22/24 09:03 Currently or been in a relationship where the following occur: No concerns reported Advance Care Planning discussion: Completed/Scanned Date of discussion: 07/22/24 Who was present: Patient Forms completed: Health Care Proxy Time spent: 16-45 minutes Actual minutes spent: 2 Const General: no acute distress Nutritional Appearance: obese Orientation/consciousness: patient oriented x3 HENMT Head: Yes normocephalic Ears: hearing grossly normal bilaterally, external ears normal, TM's normal bilaterally and EAC's normal General nose exam: Normal external nose present and Normal nares present Face and sinus: Yes face symmetric Mouth: Normal oral and palatal mucosa present, oropharynx normal and moist mucous membranes Eyes General: appearance normal, both eyes and all related structures Neck Neck: Yes full ROM, Yes no lymphadenopathy and Yes supple Thyroid: Thyroid normal (Nonpalpable) Chest Breast/axilla palpation: normal palpation of the breasts Resp Effort & Inspection: normal respiratory effort and able to speak in complete sentences Auscultation: clear to auscultation bilaterally Cardio Rate: regular rate Rhythm: regular rhythm Heart sounds: S1 normal heart sound present and S2 normal heart sound present GI Inspection: Yes obesity Palpation (GI): Soft to palpation, nontender, no guarding and no masses Auscultation: normal bowel sounds General: Yes no CVA tenderness Back/Spine/Pelvis Back: no CVA tenderness and No back tenderness Skin Other: Whitish leal thickened patch on both forearms and elbows Neuro General: patient oriented x3, gait normal, tone normal, moves all extremities, Normal light touch and pain sensation, no focal motor deficits and CN's II-XI intact bilaterally Gait exam (Neuro): Normal gait present Extrem General: Yes full ROM, Yes no joint enlargement, Yes no clubbing, cyanosis or edema and Yes normal gait Psych Mental Status: mental status grossly normal Speech and movement: Normal speech and movement present Affect: normal affect Coding Level of Care Code Est Pt Prev Care 40-64y(48252) Diagnoses Annual visit for general adult medical examination with abnormal findings Z00. Mixed dyslipidemia E78.2 Essential hypertension I10 Psoriasis L40.9 Obesity (BMI 30.0-34.9) E66.9 Advanced directives, counseling/discussion Z71.89 Impaired fasting glucose R73.01 Additional Codes PHQ-9 - 16767 - PHQ-9 Billing: Yes ([id number]) Vital Signs *Quality* - Time spent: 16-45 minutes ([id number]) Vital Signs *Quality* - Advance Care Planning discussion: Completed/Scanned ([id number]) Assessment & Plan Assessment & Plan (1) Annual visit for general adult medical examination with abnormal findings: Code(s): Z00.01 - Encounter for general adult medical examination with abnormal findings Plan: Will check appropriate labs. Recommended dental visit every 6 months and regular eye exams, at least every 2 years. Take adequate calcium in diet and vitamin-D 3 at 2000 IU per cap once a day, in addition to weight-bearing exercises to help maintain good muscle tone and weight control. Instructed to do self-breast exam, and get yearly mammogram, has appointment already sche duled. Not due yet for her cervical cancer screening, will do another Pap next year. Reminded to get her yearly flu vaccine, does not want to get COVID boosters anymore, Tdap given today. Patient also reminded to get her Cologuard test done, already received kit. (2) Mixed dyslipidemia: Code(s): E78.2 - Mixed hyperlipidemia Category: Medical Plan: Fasting lipid panel ordered, stressed importance of taking atorvastatin regularly 10 mg daily in addition to adherence to healthy eating habits and regular exercise (3) Essential hypertension: Code(s): I10 - Essential (primary) hypertension Category: Medical Plan: Patient advised to take her lisinopril regularly, may take be juice also, ad vised to get fasting labs done , basic metabolic panel (4) Psoriasis: Comment: Sees Dr. Luis Maharaj- currently on Humira Code(s): L40.9 - Psoriasis, unspecified Category: Medical Plan: Currently followed by dermatology, on Humira (5) Obesity (BMI 30.0-34.9): Code(s): E66.9 - Obesity, unspecified Category: Medical Plan: Will start on Ozempic 0.25 mg injected subcutaneously once a week. Patient instructed on proper administration of the medication. Discussed possible side effects of medication which may include abdominal cramping, nausea, alteration in bowel habits, vision changes. Advised adherence to healthy diet and getting regular exercise, will see her back for follow-up and do August or early September. (6) Advanced directives, counseling/discussion: Code(s): Z71.89 - Other specified counseling Plan: Initiated the conversation about Advanced Directives. Advanced Directives help patients prepare for current and future decisions about their medical treatment and place of care. Discussed with patient that it is a process where a patients current condition and prognosis are reviewed, their wishes for information regarding their illness are elicited, and likely medical dilemmas are presented and options discussed. Healthcare proxy form completed today. The form can be amended as needed, reviewed yearly and make changes as needed (7) Impaired fasting glucose: Code(s): R73.01 - Impaired fasting glucose Category: Medical Plan: Your previous fasting blood sugars were elevated above 100 mg/dL. Impaired glucose metabolism increases the risk for developing diabetes mellitus type 2, as well as heart attack and stroke later on. Lifestyle changes that promotes weight loss, healthy eating habits, and regular exercise are important, and can prevent the progression to diabetes Orders: Orders Lipid Panel Today E66.9 - Obesity, unspecified, E78.2 - Mixed hyperlipidemia, I10 - Essential (primary) hypertension, L40.9 - Psoriasis, unspecified, Z00.01 - Encounter for general adult medical examination with abnormal findings Basic Metabolic Panel Fasting Today E66.9 - Obesity, unspecified, E78.2 - Mixed hyperlipidemia, I10 - Essential (primary) hypertension, L40.9 - Psoriasis, unspecified, Z00.01 - Encounter for general adult medical examination with abnormal findings Alanine Aminotransferase Today E66.9 - Obesity, unspecified, E78.2 - Mixed hyperlipidemia, I10 - Essential (primary) hypertension, L40.9 - Psoriasis, unspecified, Z00.01 - Encounter for general adult medical examination with abnormal findings Aspartate Amino Transferase Today E66.9 - Obesity, unspecified, E78.2 - Mixed hyperlipidemia, I10 - Essential (primary) hypertension, L40.9 - Psoriasis, unspecified, Z00.01 - Encounter for general adult medical examination with abnormal findings Vitamin D 25-OH Total Today E66.9 - Obesity, unspecified, E78.2 - Mixed hyperlipidemia, I10 - Essential (primary) hypertension, L40.9 - Psoriasis, unspecified, Z00.01 - Encounter for general adult medical examination with abnormal findings TDaP Immunization Today Z23 - Encounter for immunization Medications: New Ozempic (semaglutide) for 4 weeks 0.25 mg (0.368 mL) subcut QWEEK 30 days 3 mL 2RF NS E66.9 - Obesity, unspecified, E78.2 - Mixed hyperlipidemia, I10 - Essential (primary) hypertension, R73.01 - Impaired fasting glucose Ozempic (semaglutide) for 4 weeks 0.25 mg (0.368 mL) subcut QWEEK 30 days 3 mL 2RF NS E66.9 - Obesity, unspecified, E78.2 - Mixed hyperlipidemia, I10 - Essential (primary) hypertension, R73.01 - Impaired fasting glucose Boostrix Tdap (diphth,pertus(acell),tetanus) 0.5 mL IM ONCE 0.5 mL 0RF NS Z23 - Encounter for immunization Refilled atorvastatin 10 mg PO DAILY 90 tabs 1RF E66.9 - Obesity, unspecified, I10 - Essential (primary) hypertension lisinopril 5 mg PO DAILY 90 tabs 1RF
[2024-07-22 09:15] VITALS: BP 128/88; PULSE 93; RESP 16; TEMP 36.7; O2SAT 100; BMI 37.3
== END 2024-07-22 10:19 | disposition home or self-care (01) ==
LOC: HO.HMCC 08:39
PROVIDERS: PCP Internal Medicine; Visit Provider Internal Medicine
DX: Z00.00 Encounter for general adult medical examination without abnormal findings (principal); E78.2 Mixed hyperlipidemia; Z68.37 Body mass index [BMI] 37.0-37.9, adult; E66.9 Obesity, unspecified; L40.9 Psoriasis, unspecified; I10 Essential (primary) hypertension; Z71.89 Other specified counseling; R73.01 Impaired fasting glucose; Z23 Encounter for immunization

== ENCOUNTER → 2024-07-22 08:38 | Outpatient (BNVA) | payer BC, SELFPAY | PROVIDERS: PCP Internal Medicine; Visit Provider Internal Medicine | DX: Z00.01 Encounter for general adult medical examination with abnormal findings (principal); Z23 Encounter for immunization; E78.2 Mixed hyperlipidemia; I10 Essential (primary) hypertension; L40.9 Psoriasis, unspecified; E66.9 Obesity, unspecified; Z68.37 Body mass index [BMI] 37.0-37.9, adult; R73.01 Impaired fasting glucose; Z79.899 Other long term (current) drug therapy; Z71.89 Other specified counseling | CPT/HCPCS: 90471; 90715; 96127 ==

== ENCOUNTER 2024-07-26 08:20 | Outpatient (REF) | payer BC, SELFPAY ==
--- NOTE | ~2024-07-26 | MM_ITS ---
EXAMINATION: MM SCREENING DIGITAL BREAST TOMOSYNTHESIS, BILATERAL CLINICAL INFORMATION: Screening. Asymptomatic. COMPARISON: Mammography: Comparison is made with available priors TECHNIQUE: Digital breast mammography with tomosynthesis is performed in both the craniocaudal and mediolateral oblique views along with computer-aided detection (CAD). FINDINGS: There are scattered areas of fibroglandular density (ACR BI-RADS breast composition Category b). There are no significant masses, abnormal calcifications, or other abnormalities. MM/MM tomosynthesis screening BI IMPRESSION: No mammographic evidence of malignancy. ASSESSMENT: BI-RADS BI-RADS 1 - Negative RECOMMENDATION: Routine annual mammography screening. 1 year F/U This examination should not preclude the clinical evaluation of a suspicious palpable abnormality. This patient's information was entered into a reminder system with a target due date for their next mammogram. Electronically signed by: Debi Talavera DO 08/02/2024 03:09 PM KARYN
[2024-07-26 10:07] LABS: Alanine Aminotransferase 27 U/L (0-31); Anion Gap 12 (12-20); Aspartate Amino Transferase 20 U/L (5-31); Blood Urea Nitrogen 13 mg/dL (9-16); Calcium 9.2 mg/dL (8.4-10.2); Carbon Dioxide 24 mmol/L (22-29); Chloride 106 mmol/L (96-108); Cholesterol 216 mg/dL (<200); Estimated Glomerular Filt Rate > 60; Glucose Fasting 99 mg/dL (60-99); HDL Cholesterol 55 mg/dL (>40); LDL Cholesterol Calculated 138 mg/dL (<100); Potassium 3.9 mmol/L (3.3-5.1); Sodium 138 mmol/L (135-145); Triglycerides 115 mg/dL (<150)
[2024-07-26 10:21] LABS: Vitamin D 25-OH Total 34.7 ng/mL (>30)
== END 2024-07-26 08:21 | disposition home or self-care (01) ==
LOC: HO.MAMMO 08:20
PROVIDERS: PCP Internal Medicine; Visit Provider Internal Medicine
DX: Z00.01 Encounter for general adult medical examination with abnormal findings (principal); E78.2 Mixed hyperlipidemia; I10 Essential (primary) hypertension; L40.9 Psoriasis, unspecified; E66.9 Obesity, unspecified; Z12.31 Encounter for screening mammogram for malignant neoplasm of breast; R92.323 Mammographic fibroglandular density, bilateral breasts
CPT/HCPCS: 36415; 77063; 77067; 80048; 80061; 82306; 84450; 84460

== ENCOUNTER → 2024-07-26 08:45 | Outpatient (BNV) | payer BC, SELFPAY | PROVIDERS: PCP Internal Medicine; Visit Provider Internal Medicine | DX: Z12.31 Encounter for screening mammogram for malignant neoplasm of breast (principal) | CPT/HCPCS: 77063; 77067 ==

== ENCOUNTER 2024-11-20 14:25 | Outpatient (AMB) | payer BC, SELFPAY ==
[2024-11-20 15:21] VITALS: BP 100/70; PULSE 78; RESP 16; TEMP 36.7; O2SAT 100; BMI 37.3
--- NOTE | 2024-11-20 15:21 | MHC.PC.OV ---
Vital Signs 11/20/24 15:21 Height 5 ft Weight 191 lb BMI 37.3 BP 100/70 Blood Pressure Location Lt brachial Position Sitting Respiration 16 Pulse 78 Pulse Source Pulse Oximeter Temp 98.0 F Temp Source Oral Pulse Oximetry (%) 100 Oxygen Delivery Method Room Air Intake Visit Reasons: ffup weight , lipids-per dr Wolf Intake Note: Pt is here today for her f/u wgt and lipids Allergies No Known Allergies Allergy (Verified 11/20/24 15:49) Medication List - Last Reconciled 11/20/24 by Tamiko Laurent MD adalimumab (Humira(CF) Pen) 40 mg subcut Q2W atorvastatin 10 mg PO DAILY lisinopril 5 mg PO DAILY phentermine 30 mg PO DAILY Tobacco use date assessed: 11/20/24 Dental Screening Dental Screen Date: 11/20/24 Did you have a dental visit in the last 12 months?: Yes Did you have a dental problem in the last 6 months where you did not have access to dental care?: No Was dental information given to patient?: Patient has dentist HPI ffup weight , lipids-per dr Wolf HPI Details 48-year-old lady with history of obesity, hyperlipidemia, hypertension, psoriasis here today for her follow-up. Currently on atorvastatin 10 mg daily for treatment of dyslipidemia, currently on lisinopril 5 mg once a day for her hypertension with blood pressure within normal limits. Was on phentermine 30 mg daily for the last 2 months, which has not afforded any significant weight loss and has stopped taking it . She had fasting labs done 11/19/2024 at lab [facility] which showed normal fasting glucose, electrolytes renal function liver enzymes. Total cholesterol was 217 with triglycerides 155 LDL cholesterol 122 with a HDL of 68. Hemoglobin A1c is normal at 5.9% She states that she has been off her diet for the last 2 months , after she lost her job, now recently got re-hired back at [employer] [facility] [employer], and is now back on her diet, but has not started any regular exercise. Does not want to start any medication for weight loss at present time. [facility] Medical History Adalimumab (Humira) long-term use Impaired fasting glucose Acute respiratory disease Cough Wheezing on auscultation Essential hypertension Vitamin D deficiency Hypochromic microcytic anemia Mixed dyslipidemia Hyperlipidemia Psoriasis Cervical cancer screening Anemia Obesity (BMI 30.0-34.9) Surgical History H/O tubal ligation Previous section Family History Father Insulin dependent type 1 diabetes mellitus Mother CAD (coronary artery disease) H/O heart artery stent Hypercholesteremia Sister Thyroid disorder Essential hypertension Social History Housing: House Alcohol intake: current Alcohol intake frequency: holidays/special occasions only Alcohol type: wine and hard liquor Patient Tobacco Use Status: Never used Tobacco e-Cigarette/Vaping Use: Never Used service: No Current occupational status: employed 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[employer] Cognitive needs: No Hearing needs: No Vision needs: No Questionnaire PHQ-9 Over the last 2 weeks, how often have you been bothered by any of the following problems? 1. Little interest or pleasure in doing things: not at all 2. Feeling down, depressed, or hopeless: not at all 3. Trouble falling or staying asleep, or sleeping too much: nearly every day 4. Feeling tired or having little energy: nearly every day 5. Poor appetite or overeating: not at all 6. Feeling bad about yourself - or that you are a failure or have let yourself or your family down: not at all 7. Trouble concentrating on things, such as reading the newspaper or watching television: several days 8. Moving or speaking so slowly that other people could have noticed. Or the opposite - being so fidgety or restless that you have been moving around a lot more than usual: not at all 9. Thoughts that you would be better off or of hurting yourself in some way: not at all Total score: 7 Depression Screening Interpretation: Negative Depression Screening Done: Yes Source: Developed by Drs. Antonio Salazar, Radha Davison, Baltazar Borges and colleagues, with an educational roberta from [employer]. Thrive Questionnaire Date Thrive assessed: 07/22/24 I am a: Patient What is your living situation today?: I have a steady place to live Within the past 12 months, did the food you bought not last and you didn't have the money to get more?: Never true Within the past 12 months, did you worry whether your food would run out before you got money to buy more?: Never true Do you have trouble paying for medicines?: No Do you have trouble getting transportation to medical appointments?: No Do you have trouble paying your heating and electricity bill?: No Do you have trouble taking care of your child, family member or friend?: No Do you have trouble with day-to-day activities such as bathing, preparing meals, shopping, managing finances, etc.?: No Are you currently unemployed and looking for a job?: No Are you interested in more education?: No Please select the resources that you would like help with: None Currently or been in a relationship where the following occur: No concerns reported THRIVE Score: 0 AUDIT C Alcohol Use Questionnaire (AUDIT-C) 1. How often do you have a drink containing alcohol?: Monthly or less 2. How many drinks containing alcohol do you have on a typical day when you are drinking?: 1 or 2 3. How often do you have six or more drinks on one occasion?: Never Total Score: 1 LAWANDA-7 AMB Questionnaire LAWANDA-7 Date LAWANDA - 7 assessed: 07/22/24 Feeling nervous, anxious, or on edge: 0 = Not at all Not being able to stop or control worryin = Not at all Worrying too much about different things: 1 = Several days Trouble relaxin = Several days Being so restless that it is hard to sit still: 0 = Not at all Becoming easily annoyed or irritable: 0 = Not at all Feeling afraid as if something awful might happen: 0 = Not at all Total LAWANDA-7 score (0-4 normal; 5-9 mild; 10-14 moderate; 15-21 severe): 2 Source: Developed by Drs. Antonio Salazar, Radha Davison, Baltazar Borges and colleagues, with an educational roberta from [employer]. Review of Systems Const Denies body aches, Denies fever(s), Denies headache(s) and Denies weakness Eyes Reports blurry vision (Both with distance and reading) ENT Denies dizziness, Denies headache(s), Denies nasal congestion, Denies nasal discharge and Denies sore throat Card Denies chest pain, Denies lightheadedness, Denies palpitations and Denies dyspnea Resp Denies chest congestion, Denies cough, Denies dyspnea and Denies wheezing GI Denies abdominal pain, Denies change in bowel habits and Denies heartburn Denies hematuria, Denies urinary frequency, Denies dysuria and Denies urinary urgency Musc Reports no additional complaints Skin/Breast Details: Has psoriasis currently on Humira 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 Denies furuncle and Denies dry skin Neuro Denies dizziness, Denies headache(s) and Denies weakness Psych Reports no additional complaints Endo Denies polydipsia, Denies polyuria and Denies palpitations José Miguel/Lymph Reports no additional complaints Aller/Immun Denies seasonal rhinorrhea and Denies wheezing Physical exam (Primary Care) Vital Signs: Last Vital Signs Temp 98.0 F 11/20/24 15:21 Pulse 78 11/20/24 15:21 Resp 16 11/20/24 15:21 BP 100/70 11/20/24 15:21 Pulse Ox 100 11/20/24 15:21 Oxygen Delivery Method Room Air 11/20/24 15:21 BMI result Body Mass Index 37.3 BMI Assessment/Plan discussion: High BMI High, discussed plan: lifestyle, weight reduction, dietary and physical activity Tobacco/Smoking Status: Tobacco use Status Tobacco use date assessed 11/20/24 11/20/24 15:23 Patient Tobacco Use Status Never used Tobacco 11/20/24 15:23 e-Cigarette/Vaping Use Never Used 11/20/24 15:23 PHQ-9: PHQ-9 Score PHQ-9: Total score 7 11/20/24 15:51 Depression Screening Interpretation: Negative Thrive Assessment: Date of Thrive Assessment Date Thrive assessed 07/22/24 11/20/24 15:23 Currently or been in a relationship where the following occur: No concerns reported Const General: no acute distress Nutritional Appearance: obese Orientation/consciousness: patient oriented x3 HENMT Head: Yes normocephalic Ears: hearing grossly normal bilaterally, external ears normal, TM's normal bilaterally and EAC's normal General nose exam: Normal external nose present and Normal nares present Face and sinus: Yes face symmetric Mouth: Normal oral and palatal mucosa present, oropharynx normal and moist mucous membranes Eyes General: appearance normal, both eyes and all related structures Neck Neck: Yes full ROM, Yes no lymphadenopathy and Yes supple Thyroid: Thyroid normal (Nonpalpable) Chest Breast/axilla palpation: normal palpation of the breasts Resp Effort & Inspection: normal respiratory effort and able to speak in complete sentences Auscultation: clear to auscultation bilaterally Cardio Rate: regular rate Rhythm: regular rhythm Heart sounds: S1 normal heart sound present and S2 normal heart sound present GI Inspection: Yes obesity Palpation (GI): Soft to palpation, nontender, no guarding and no masses Auscultation: normal bowel sounds General: Yes no CVA tenderness Back/Spine/Pelvis Back: no CVA tenderness and No back tenderness Skin Other: Whitish leal thickened patch on both forearms and elbows Neuro General: patient oriented x3, gait normal, tone normal, moves all extremities, Normal light touch and pain sensation, no focal motor deficits and CN's II-XI intact bilaterally Gait exam (Neuro): Normal gait present Extrem General: Yes full ROM, Yes no joint enlargement, Yes no clubbing, cyanosis or edema and Yes normal gait Psych Mental Status: mental status grossly normal Speech and movement: Normal speech and movement present Affect: normal affect Coding Level of Care Code Est Pt Level 4 (41119) Complex EM visit Add On G2211 Diagnoses Essential hypertension I10 Mixed dyslipidemia E78.2 Impaired fasting glucose R73.01 Obesity (BMI 30.0-34.9) E66.9 Assessment & Plan Assessment & Plan (1) Essential hypertension: Code(s): I10 - Essential (primary) hypertension Category: Medical Plan: Blood pressure at goal of less than 130/80. Continue with lisinopril 5 mg daily. Reinforced importance of following a low sodium diet, getting regular exercise, and lowering stress levels. (2) Mixed dyslipidemia: Code(s): E78.2 - Mixed hyperlipidemia Category: Medical Plan: Recent fasting lipids showed improvement in cholesterol levels. Will continue on atorvastatin 10 mg daily in addition to adherence to healthy diet and getting regular exercise. (3) Impaired fasting glucose: Code(s): R73.01 - Impaired fasting glucose Category: Medical Plan: Latest hemoglobin A1c is 5.9%, reinforced importance of adhering to a healthy diet and getting regular exercise. (4) Obesity (BMI 30.0-34.9): Code(s): E66.9 - Obesity, unspecified Category: Medical Plan: Discussed need to increase activity and weight reduction. Recommended focusing on improving health instead of dieting. Mediterranean diet is a healthy diet that helps, limit food high in fat, sugar, and calories. Eat slowly, pay attention to portion sizes, plan your meals ahead of time, start regular physical activity, at least 150 minutes of moderate intensity exercise, or 90 minutes per week of vigorous exercise.
== END 2024-11-20 16:41 | disposition home or self-care (01) ==
LOC: HO.HMCC 14:26
PROVIDERS: PCP Internal Medicine; Visit Provider Internal Medicine
DX: I10 Essential (primary) hypertension (principal); E78.2 Mixed hyperlipidemia; E66.9 Obesity, unspecified; Z68.37 Body mass index [BMI] 37.0-37.9, adult; R73.01 Impaired fasting glucose

== ENCOUNTER 2025-01-15 15:23 | Outpatient (AMB) | payer BC, SELFPAY ==
[2025-01-15 15:33] VITALS: BP 132/80; PULSE 83; O2SAT 100; BMI 37.1
--- NOTE | 2025-01-15 15:33 | AM.OFFWIN_ITS ---
Intake Vital Signs 01/15/25 15:33 Height 5 ft Weight 190 lb BMI 37.1 BP 132/80 Blood Pressure Location Lt brachial Position Sitting Pulse 83 Pulse Source Pulse Oximeter Pulse Oximetry (%) 100 Intake Visit Reasons: ep low abdomen pain back pain burning sensation Patient Tobacco Use Status: Never used Tobacco Allergies No Known Allergies Allergy (Verified 11/20/24 15:49) Do you need a note to return to daycare/school/sports/work: No HPI HPI Comments History of Present Illness Details History - The patient is a 49-year-old female pr esenting with urinary symptoms. - She reports frequent urination and inc ontinence, with episodes of not reaching the bathroom in time, starting yesterday. - She experiences a burning sensation du ring urination, which began at 1 o'clock on the day of the visit. - There is no history of kidney stones o r significant abdominal pain, and she denies chest pain, shortness of breath, or vomiting. - The patient has a history of perimenop ausal symptoms, including irregular periods and weight gain. - She is currently on her menses and it has been irregular. - She has attempted self-care with cranb erry juice and expresses a need for immediate relief to manage symptoms at work. - She denies fever, chills, chest pain, SOB, abd pain, back pain, or history of stones. Physical Exam General: Cooperative, healthy appearing, comfortable, no acute distress and well developed Cardiac: Normal S1 and S2. RRR, no M/R/G noted. Respiratory: Normal respiratory effort and able to speak in complete sentences. Clear to auscultation bilaterally. No w/r/r noted. Skin: No rashes or lesions noted. GI: Normal inspection. Normal BS noted. Soft, non-tender, non-distended. No TTP of all 4 quadrants. No guarding or rebound tenderness noted. Mild lower abdominal pain reported. Back: Negative CVA bilaterally. Patient was informed and verbally consented to the use of an ambient scribe for clinic note documentation during this visit. [facility] Medical History Adalimumab (Humira) long-term use Impaired fasting glucose Acute respiratory disease Cough Wheezing on auscultation Essential hypertension Vitamin D deficiency Hypochromic microcytic anemia Mixed dyslipidemia Hyperlipidemia Psoriasis Cervical cancer screening Anemia Obesity (BMI 30.0-34.9) Surgical History H/O tubal ligation Previous section Family History Father Insulin dependent type 1 diabetes mellitus Mother CAD (coronary artery disease) H/O heart artery stent Hypercholesteremia Sister Thyroid disorder Essential hypertension Social History Housing: House Alcohol intake: current Alcohol intake frequency: holidays/special occasions only Alcohol type: wine and hard liquor Patient Tobacco Use Status: Never used Tobacco e-Cigarette/Vaping Use: Never Used service: No Current occupational status: employed 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[employer] Cognitive needs: No Hearing needs: No Vision needs: No Review of Systems Const All systems reviewed & are unremarkable except as noted in HPI and below Physical Exam Vital Signs: Last Vital Signs Pulse 83 01/15/25 15:33 BP 132/80 01/15/25 15:33 Pulse Ox 100 01/15/25 15:33 BMI result Body Mass Index 37.1 Results AMB Urinalysis, Automated UA Leukoctes 15 Jackie/uL Last Edit by Edouard Isaac CMA on 01/15/25 15:43 UA Nitrite Negative Last Edit by Edouard Isaac CMA on 01/15/25 15:43 UA Urobilinogen 0.2 mg/dL Last Edit by Edouard Isaac CMA on 01/15/25 15 :43 UA Protein 15 mg/dL Last Edit by Edouard Isaac CMA on 01/15/25 15:43 UA pH 6.0 Last Edit by Edouard Isaac CMA on 01/15/25 15:43 UA Blood 200 Mukund/uL Last Edit by Edouard Isaac CMA on 01/15/25 15:43 UA Specific [place] 1.015 Last Edit by Edouard Isaac CMA on 01/15/25 15:43 UA Ketone Negative Last Edit by Edouard Isaac CMA on 01/15/25 15:43 UA Bilirubin 0 mg/dL Last Edit by Edouard Isaac CMA on 01/15/25 15:43 UA Glucose 0 mg/dL Last Edit by Edouard Isaac CMA on 01/15/25 15:43 Results Reviewed Results Reviewed: Laboratory Last Values Urine pH (Auto) 6.0 01/15/25 15:27 Specific [place] (Auto) 1.015 01/15/25 15:27 Urine Protein (Auto) 15 mg/dL 01/15/25 15:27 Glucose (UA)(Auto) 0 mg/dL 01/15/25 15:27 Urine Ketones (Auto) Negative 01/15/25 15:27 Urine Blood (Auto) 200 Mukund/uL 01/15/25 15:27 Urine Nitrite (Auto) Negative 01/15/25 15:27 Urine Bilirubin (Auto) 0 mg/dL 01/15/25 15:27 Urine Urobilinogen (Auto) 0.2 mg/dL 01/15/25 15:27 Leukocyte Esterase (Auto) 15 Jackie/uL 01/15/25 15:27 Assessment & Plan Assessment & Plan (1) Urinary frequency: Code(s): R35.0 - Frequency of micturition Plan Most likely UTI UA in the office 3+ blood, +leuko Plan - Initiate antibiotic therapy for the treatment of the urinary tract infection. - will send a UC and treat based on the results - tylenol or motrin as needed for pain or fever - Recommend continued use of cranberry juice as a supportive measure - will call with the results - follow up with PCP Orders: Orders AMB Urinalysis Automated Today Z13.9 - Encounter for screening, unspecified Urine Culture Today N39.0 - Urinary tract infection, site not specified Medications: New cefuroxime axetil 500 mg PO Q12H 10 tabs 0RF Coding Level of Care Code Est Pt Level 3 (25514) Diagnoses Urinary frequency R35.0
== END 2025-01-15 16:36 | disposition home or self-care (01) ==
PROVIDERS: PCP Internal Medicine; Visit Provider Physician Assistant Medical
DX: Z13.9 Encounter for screening, unspecified (principal); R35.0 Frequency of micturition

== ENCOUNTER 2025-01-15 15:23 | Outpatient (REF) | payer BC, SELFPAY | END 2025-01-15 15:24 | disposition home or self-care (01) | LOC: HO.LAB 15:23 | PROVIDERS: PCP Internal Medicine; Visit Provider Physician Assistant Medical | DX: R35.0 Frequency of micturition (principal); Z13.89 Encounter for screening for other disorder | CPT/HCPCS: 81003 ==

== ENCOUNTER 2025-01-16 10:41 | Outpatient (REF) | payer BC, SELFPAY | END 2025-01-16 10:42 | disposition home or self-care (01) | LOC: HO.LNP 10:41 | PROVIDERS: Visit Provider Physician Assistant Medical | DX: N39.0 Urinary tract infection, site not specified (principal) | CPT/HCPCS: 87086; 87088; 87186 ==

== ENCOUNTER 2025-02-03 08:01 | Outpatient (AMB) | payer BC, SELFPAY ==
--- NOTE | 2025-02-03 07:59 | MHC.PC.OV ---
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 Allergies No Known Allergies Allergy (Verified 02/03/25 08:10) Medication List - Last Reconciled 02/03/25 by Tamiko Laurent MD adalimumab-atto (Amjevita(CF) Autoinjector) mg subcut atorvastatin 10 mg PO DAILY lisinopril 5 mg PO DAILY Tobacco use date assessed: 02/03/25 Dental Screening Dental Screen Date: 02/03/25 Did you have a dental visit in the last 12 months?: Yes Did you have a dental problem in the last 6 months where you did not have access to dental care?: No Was dental information given to patient?: Patient has dentist HPI menstrual period x 2 weeks HPI Details The patient is a 49 year old individual presenting with irregular menstrual bleeding. The patient's last menstrual period started around the of the month, initially presenting as very light pink bleeding that did not progress to a normal period. Last week, the bleeding became a regular, heavy period with some clots, which has persisted through this week. This is the first time the patient has experienced an irregular period. Associated with the bleeding, the patient developed a urinary tract infection (UTI), which was diagnosed at an urgent care clinic. A urine test from January 15 confirmed E. coli. The patient, who reports never having a UTI before, was treated with a five-day course of antibiotics, which were completed, and symptoms improved the following day. The patient denies any abdominal discomfort and reports a normal appetite. [facility] Medical History Irregular menstrual bleeding Adalimumab (Humira) long-term use Impaired fasting glucose Acute respiratory disease Cough Wheezing on auscultation Essential hypertension Vitamin D deficiency Hypochromic microcytic anemia Mixed dyslipidemia Hyperlipidemia Psoriasis Cervical cancer screening Anemia Obesity (BMI 30.0-34.9) Surgical History H/O tubal ligation Previous section Family History Father Insulin dependent type 1 diabetes mellitus Mother CAD (coronary artery disease) H/O heart artery stent Hypercholesteremia Sister Thyroid disorder Essential hypertension Social History Housing: House Alcohol intake: current Alcohol intake frequency: holidays/special occasions only Alcohol type: wine and hard liquor Patient Tobacco Use Status: Never used Tobacco e-Cigarette/Vaping Use: Never Used service: No Current occupational status: employed 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 1. Little interest or pleasure in doing things: not at all 2. Feeling down, depressed, or hopeless: not at all 3. Trouble falling or staying asleep, or sleeping too much: nearly every day 4. Feeling tired or having little energy: nearly every day 5. Poor appetite or overeating: not at all 6. Feeling bad about yourself - or that you are a failure or have let yourself or your family down: not at all 7. Trouble concentrating on things, such as reading the newspaper or watching television: several days 8. Moving or speaking so slowly that other people could have noticed. Or the opposite - being so fidgety or restless that you have been moving around a lot more than usual: not at all 9. Thoughts that you would be better off or of hurting yourself in some way: not at all Total score: 7 Source: Developed by Drs. Antonio Salazar, Radha Davison, Baltazar Borges and colleagues, with an educational roberta from [employer]. Thrive Questionnaire Date Thrive assessed: 07/22/24 I am a: Patient What is your living situation today?: I have a steady place to live Within the past 12 months, did the food you bought not last and you didn't have the money to get more?: Never true Within the past 12 months, did you worry whether your food would run out before you got money to buy more?: Never true Do you have trouble paying for medicines?: No Do you have trouble getting transportation to medical appointments?: No Do you have trouble paying your heating and electricity bill?: No Do you have trouble taking care of your child, family member or friend?: No Do you have trouble with day-to-day activities such as bathing, preparing meals, shopping, managing finances, etc.?: No Are you currently unemployed and looking for a job?: No Are you interested in more education?: No Please select the resources that you would like help with: None Currently or been in a relationship where the following occur: No concerns reported THRIVE Score: 0 AUDIT C Alcohol Use Questionnaire (AUDIT-C) 1. How often do you have a drink containing alcohol?: Monthly or less 2. How many drinks containing alcohol do you have on a typical day when you are drinking?: 1 or 2 3. How often do you have six or more drinks on one occasion?: Never Total Score: 1 LAWANDA-7 AMB Questionnaire LAWANDA-7 Date LAWANDA - 7 assessed: 07/22/24 Feeling nervous, anxious, or on edge: 0 = Not at all Not being able to stop or control worryin = Not at all Worrying too much about different things: 1 = Several days Trouble relaxin = Several days Being so restless that it is hard to sit still: 0 = Not at all Becoming easily annoyed or irritable: 0 = Not at all Feeling afraid as if something awful might happen: 0 = Not at all Total LAWANDA-7 score (0-4 normal; 5-9 mild; 10-14 moderate; 15-21 severe): 2 Source: Developed by Drs. Antonio Salazar, Radha Davison, Baltazar Borges and colleagues, with an educational roberta from [employer]. Review of Systems Const All systems reviewed & are unremarkable except as noted in HPI and below Card Denies chest pain, Denies rapid heart rate, Denies irregular heart rhythm, Denies lightheadedness and Denies dyspnea Resp Denies dyspnea Physical exam (Primary Care) Tobacco/Smoking Status: Tobacco use Status Tobacco use date assessed 02/03/25 02/03/25 08:00 Patient Tobacco Use Status Never used Tobacco 02/03/25 08:00 e-Cigarette/Vaping Use Never Used 02/03/25 08:00 PHQ-9: PHQ-9 Score PHQ-9: Total score 7 02/03/25 08:03 Thrive Assessment: Date of Thrive Assessment Date Thrive assessed 07/22/24 02/03/25 08:00 Currently or been in a relationship where the following occur: No concerns reported Telehealth Telehealth Telehealth Platform: [facility] Location of provider rendering services: practice address Location of patient: address on file Patient Identification confirmed using: Name, : Yes Telehealth method: video Patient verbally consented to treatment: Yes Patient verbally consented to billing insurance company: Yes Patient informed of any privacy concerns related to visit: Yes Minutes spent on Phone/Video with Pt.: 15 Coding Level of Care Code Tele Est Pt Level 4 (86760) Diagnoses Irregular menstrual bleeding N92.6 Assessment & Plan Assessment & Plan (1) Irregular menstrual bleeding: Code(s): N92.6 - Irregular menstruation, unspecified Category: Medical Plan: I explained to the patient that the irregular and heavy bleeding is characteristic of perimenopause at the age of 49, caused by erratic hormone cycling. I have ordered a CBC and TSH to evaluate for anemia and rule out thyroid issues. I advised waiting for CBC results before starting iron supplements. I recommended a consultation with an GENERATION ENGINEERING TECHNOLOGIST for specialized management of menopausal hormonal changes. We arranged for the lab order to be sent to the patient's preferred [facility] location, pending receipt of the fax number via the patient portal. I reassured the patient that since the bleeding is subsiding and there are no other acute symptoms, no immediate intervention is necessary pending lab results. Orders: Orders TSH reflex Free T4 Today N92.6 - Irregular menstruation, unspecified Complete Blood Count Auto Diff Today N92.6 - Irregular menstruation, unspecified
== END 2025-02-03 11:57 | disposition home or self-care (01) ==
LOC: HO.HMCC 08:01
PROVIDERS: PCP Internal Medicine; Visit Provider Internal Medicine
DX: N92.6 Irregular menstruation, unspecified (principal)

== ENCOUNTER 2025-03-10 15:18 | Outpatient (AMB) | payer BC, SELFPAY ==
[2025-03-10 15:20] VITALS: BP 134/80; PULSE 81; TEMP 36.7; O2SAT 99; BMI 37.5
--- NOTE | 2025-03-10 15:20 | MHC.OFFWIV ---
Intake Vital Signs 03/10/25 15:20 Height 5 ft Weight 192 lb BMI 37.5 BP 134/80 Blood Pressure Location Lt brachial Position Sitting Pulse 81 Pulse Source Pulse Oximeter Temp 98.1 F Temp Source Oral Pulse Oximetry (%) 99 Oxygen Delivery Method Room Air Intake Visit Reasons: EP Cough Intake Note: pt presents with chest congestion and coughing, sore throat with white spots Patient Tobacco Use Status: Never used Tobacco Allergies No Known Allergies Allergy (Verified 03/10/25 15:36) Do you need a note to return to daycare/school/sports/work: No HPI HPI Comments History of Present Illness Details History - The patient is a 49 year old female presenting with a sore throat and cough. - The patient reports onset of a severe sore throat last week, which was so painful she could not swallow water. - She had a known exposure to a child in her household who was diagnosed with strep throat. Her other kids have a cough and congestion. - The patient states she did not receive any treatment for her initial symptoms. - The sore throat has since improved, but she developed a severe cough that is worse at night and disrupts her sleep. - Associated symptoms included a headache. - She also reports hearing a whistling sound and feeling as though she was wheezing with the cough. - A rapid strep test performed prior to the visit was negative. - The patient has a past medical history of bronchitis. - She denies any history of asthma or COPD. [facility] Medical History (Updated 03/10/25 @ 15:48 by Radha Laughlin PA-C) Strep pharyngitis Anemia Irregular menstrual bleeding Adalimumab (Humira) long-term use Impaired fasting glucose Acute respiratory disease Cough Wheezing on auscultation Essential hypertension Vitamin D deficiency Hypochromic microcytic anemia Mixed dyslipidemia Hyperlipidemia Psoriasis Cervical cancer screening Obesity (BMI 30.0-34.9) Surgical History H/O tubal ligation Previous section Family History Father Insulin dependent type 1 diabetes mellitus Mother CAD (coronary artery disease) H/O heart artery stent Hypercholesteremia Sister Thyroid disorder Essential hypertension Social History Housing: House Alcohol intake: current Alcohol intake frequency: holidays/special occasions only Alcohol type: wine and hard liquor Patient Tobacco Use Status: Never used Tobacco e-Cigarette/Vaping Use: Never Used service: No Current occupational status: employed 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 - HEENT: Reports sore throat, which is improving but still present, and a headache. Denies ear pain and sinus pain. - Respiratory: Reports a severe cough that is worse at night. Reports hearing a whistling sound and some wheezing with cough. All systems reviewed and are unremarkable except as noted in HPI Physical Exam Exam Exam: Physical Exam General: Cooperative, healthy appearing, comfortable and no acute distress Orientation/consciousness: Patient oriented x3 Limitations: No limitations Head: Normal to inspection Ears: Hearing grossly normal bilaterally, external ears normal, EAC's normal bilaterally and TM's normal bilaterally Nose: Normal external nose present, Normal nares present and No nasal discharge present Face and sinus: Normal facial exam and sinuses nontender Mouth: Normal oral and palatal mucosa present and moist mucous membranes Throat: tonsils with erythem and exudates, uvula midline, posterior oropharynx erythema Eyes: Appearance normal, both eyes and all related structures Neck: Normal visual inspection, full ROM Respiratory: Clear to auscultation bilaterally. Normal respiratory effort, able to speak in complete sentences, actively coughing, no respiratory distress, not tachypneic, no tripod positioning and no use of accessory muscles Cardiovascular: Regular rate and rhythm. Normal S1 and S2 Skin: No rashes or lesions noted Neuro: Patient oriented x3 Extremities: Normal to inspection and Yes no clubbing, cyanosis or edema Vital Signs: Last Vital Signs Temp 98.1 F 03/10/25 15:20 Pulse 81 03/10/25 15:20 BP 134/80 03/10/25 15:20 Pulse Ox 99 03/10/25 15:20 Oxygen Delivery Method Room Air 03/10/25 15:20 BMI result Body Mass Index 37.5 Results AMB Rapid Strep AMB Rapid Strep Negative Last Edit by Tammie Pace CMA on 03/10/25 15:41 Results Reviewed Results Reviewed: Laboratory Last Values Strep Scn Rapid Clinic Negative 03/10/25 15:41 Assessment & Plan Assessment & Plan (1) Strep pharyngitis: Code(s): J02.0 - Streptococcal pharyngitis Plan: Patient was informed and verbally consented to the use of an ambient scribe for clinic note documentation during this visit. - VSS, pt well appearing and PE remarkable for tonsilar exudates with erythema. - Based on the patient's symptomatic presentation, positive exposure history to a child with strep throat, and the presence of white spots on her tonsils, empiric treatment for strep throat is warranted despite a prior negative rapid test. Centor criteria 1, 5-10% probability of strep pharyngitis however it's likely she has more than one diagosis with multiple sick kids with different illnesses. - A prescription for amoxicillin was sent to the pharmacy, to be taken every 12 hours for 10 days. - A throat culture, which is the definitive test, was performed. - If the culture does not grow anything, the patient will be contacted and can discontinue the antibiotic. (2) Acute viral syndrome: Code(s): B34.9 - Viral infection, unspecified Plan: - The patient reports a severe nocturnal cough that is causing sleep disturbance. - Prescribed benzonatate (Tessalon Perles) to be taken at bedtime to act as a cough suppressant. - The patient was strongly cautioned not to share this medication with her children as it can be dangerous for them. - Advised the patient to not lay flat on her back to help manage the cough, lay on your side or prop yourself up with pillows. - To assess for common circulating respiratory viruses, flu, COVID, and RSV tests were performed. - The patient will be called with the results tomorrow. Orders: Orders AMB Rapid Strep Screen Today Z13.9 - Encounter for screening, unspecified Throat Culture Today J02.9 - Acute pharyngitis, unspecified SARS-CoV2/FLU/RSV Today R09.89 - Other specified symptoms and signs involving the circulatory and respiratory systems Medications: New amoxicillin 500 mg PO Q12H 20 tabs 0RF benzonatate DO NOT ALLOW CHILDREN TO HAVE ACCESS TO THIS MEDICATION IT IS DANGEROUS FOR CHILDREN. 200 mg PO BEDTIME PRN 10 caps 0RF cough Coding Level of Care Code Est Pt Level 4 (95856) Diagnoses Strep pharyngitis J02.0 Acute viral syndrome B34.9
== END 2025-03-10 16:04 | disposition home or self-care (01) ==
PROVIDERS: PCP Internal Medicine; Visit Provider Physician Assistant
DX: J02.0 Streptococcal pharyngitis (principal); B34.9 Viral infection, unspecified; Z13.9 Encounter for screening, unspecified

== ENCOUNTER 2025-03-10 15:18 | Outpatient (REF) | payer BC, SELFPAY ==
[2025-03-11 10:42] LABS: Resp Syncy Virus RNA Qual PCR NEGATIVE (Negative); SARS COV2 PCR INHOUSE NEGATIVE (Negative)
== END 2025-03-10 15:19 | disposition home or self-care (01) ==
LOC: HO.LNP 15:18
PROVIDERS: Physician Assistant; PCP Internal Medicine
DX: J02.0 Streptococcal pharyngitis (principal); B34.9 Viral infection, unspecified; R09.89 Other specified symptoms and signs involving the circulatory and respiratory systems
CPT/HCPCS: 87070; 87637; 87880